=== PATIENT | female | born 1950 | race Hispanic/Latino ===

== ENCOUNTER 2018-01-17 12:58 | Observation (INO) | payer MEDICARE, OTHER ==
[~2018-01-17] VITALS: Ht 167.6 cm; Wt 81.1 kg
[~2018-01-17 12:58] MED LIST: CILO50TA PO; FERROUS PO; FOLI1TAB85 PO; FURO40TA7 PO; GABA-533 PO; GLIP10TA9 PO; INS7030 SQ; LEVO112T7 PO; METF10004 PO; PRAV20TA4 PO; TRAM50TA4 PO; VALS160T28 PO
[2018-01-17 13:53] LABS: BASOPHILS % (AUTO) 1.4 % (0.0-5.0); EOSINOPHILS % (AUTO) 2.2 % (0.0-8.0); HEMATOCRIT 24.4 % (36-48); LYMPHOCYTES % (AUTO) 10.2 % (21.0-51.0); MEAN CORPUSCULAR HEMOGLOBIN 33.3 pg (27.0-33.0); MEAN CORPUSCULAR HGB CONC 34.1 g/dL (32.0-36.0); MEAN CORPUSCULAR VOLUME 97.6 fL (79-99); MONOCYTES % (AUTO) 7.1 % (3.0-13.0); NEUTROPHILS % (AUTO) 79.1 % (40.0-77.0); PLATELET COUNT (AUTO) 379 K/uL (130-400); RED BLOOD CELL COUNT(AUTO) 2.49 MIL/uL (4.00-5.50); RED CELL DISTRIBUTION WIDTH 22.5 % (11.0-15.5); WHITE BLOOD COUNT (AUTO) 9.7 K/uL (4.8-10.8)
[2018-01-17 14:10] LABS: INR 0.92 (0.85-1.15); PROTHROMBIN TIME 9.7 SEC (9.6-11.6)
[2018-01-17 14:23] LABS: ALBUMIN 3.7 g/dL (3.5-5.0); BILIRUBIN,TOTAL 0.3 mg/dL (0.2-1.0); CREATINE KINASE MB 2.2 ng/mL (0.5-3.6); POTASSIUM 4.5 mmol/L (3.5-5.1); TOTAL PROTEIN, SERUM 7.7 g/dL (6.0-8.3)
[2018-01-17] MEDS ORDERED: SODIUM CHLORIDE 0.9% 1000ML 1,000 ML IV ONE (16:20)
[2018-01-17 17:53] LABS: APPEARANCE,URINE Clear (CLEAR); BILIRUBIN,URINE Negative (NEGATIVE); COLOR,URINE Yellow (YELLOW); GLUCOSE, URINE (UA) Negative (NEGATIVE); KETONES,URINE Negative (NEGATIVE); LEUKOCYTE ESTERASE ,URINE Trace (NEGATIVE); NITRATE,URINE Negative (NEGATIVE); OCCULT BLOOD,URINE Trace (NEGATIVE); PROTEIN,URINE Negative (NEGATIVE); UROBILINOGEN,URINE 0.2 mg/dL (0.2-1.0)
[2018-01-17 18:06] LABS: BACTERIA,URINE Few /HPF (None Seen); RBC,URINE None Seen /HPF (0-1); WBC,URINE 0-1 /HPF (0-1)
[2018-01-17] MEDS ORDERED: ACETAMINOPHEN 325 MG TAB ONE (21:23)
[2018-01-18 00:34] VITALS: BP 127/62
[2018-01-18] MEDS ORDERED: ACETAMINOPHEN-CODEINE 300/30MG TAB PO PRN ×2 (01:00)
[2018-01-18] MEDS ORDERED: ONDANSETRON HCL 4 MG/2 ML VIAL IVP PRN (02:00)
[2018-01-18] MEDS ORDERED: ACETAMINOPHEN 325 MG TAB PO PRN ×2 (02:00)
[2018-01-18] MEDS ORDERED: SODIUM CHLORIDE 0.9% 1000ML 1,000 ML IV SCH (02:00)
[2018-01-18] MEDS ORDERED: LACTULOSE 20 GM/30 ML UDCUP PO PRN (02:00)
[2018-01-18] MEDS ORDERED: DEXTROSE 50%-WATER 50 ML DISP.SYRIN IV PRN (04:00)
[2018-01-18] MEDS ORDERED: POTASSIUM CHLORIDE 20MEQ/100ML 100 ML IV PRN (04:00)
[2018-01-18] MEDS ORDERED: GLUCAGON 1MG KIT 1 MG ML IM PRN (04:00)
[2018-01-18] MEDS ORDERED: HYDRALAZINE HCL 20 MG/ML VIAL IV PRN (04:00)
[2018-01-18] MEDS ORDERED: POTASSIUM CHLORIDE 20 MEQ ERTAB PO PRN (04:00)
[2018-01-18] MEDS ORDERED: POTASSIUM CHLORIDE 10% ELIXIR 20 MEQ/15 ML UDCUP PO PRN (04:00)
[2018-01-18] MEDS ORDERED: LIDOCAINE HCL-MPF 1% 2ML VIAL IVP PRN (04:00)
[2018-01-18 04:36] LABS: HEMATOCRIT 21.4 % (36-48); MEAN CORPUSCULAR HEMOGLOBIN 34.3 pg (27.0-33.0); MEAN CORPUSCULAR HGB CONC 35.2 g/dL (32.0-36.0); MEAN CORPUSCULAR VOLUME 97.4 fL (79-99); PLATELET COUNT (AUTO) 364 K/uL (130-400); RED BLOOD CELL COUNT(AUTO) 2.19 MIL/uL (4.00-5.50); RED CELL DISTRIBUTION WIDTH 21.9 % (11.0-15.5); WHITE BLOOD COUNT (AUTO) 6.5 K/uL (4.8-10.8)
[2018-01-18 04:41] VITALS: BP 142/59
[2018-01-18 04:51] LABS: CREATININE 2.4 mg/dL (0.5-1.5); POTASSIUM 3.7 mmol/L (3.5-5.1)
[2018-01-18] MEDS: INSULIN HUMULIN R 100 UNIT/ML 3ML SQ SCH ×2 (06:04→11:57)
[2018-01-18 08:00] VITALS: BP 124/59
[2018-01-18] MEDS ORDERED: FAMOTIDINE 20MG TAB 20 MG TAB PO SCH (09:00)
[2018-01-18] MEDS ORDERED: CIPR250T6 PO (10:35)
[2018-01-18] MEDS ORDERED: FURO40TA5 PO (11:37)
[2018-01-18] MEDS ORDERED: HYDR12.530 PO (11:37)
[2018-01-18] MEDS ORDERED: FOLI1TAB15 PO (11:37)
[2018-01-18] MEDS ORDERED: VALS160T28 PO (11:37)
[2018-01-18] MEDS ORDERED: FOLI0.8T43 PO (11:37)
[2018-01-18] MEDS ORDERED: LEVO112T7 PO (11:37)
[2018-01-18] MEDS ORDERED: PRAV20TA4 PO (11:37)
[2018-01-18] MEDS ORDERED: B1/B1TAB4 PO (11:37)
[2018-01-18] MEDS ORDERED: GABA-529 PO (11:37)
[2018-01-18] MEDS ORDERED: CILO50TA PO (11:43)
[2018-01-18 12:00] VITALS: BP 141/60
[2018-01-18] MEDS ORDERED: GABAPENTIN 100 MG CAPSULE PO SCH (21:00)
[2018-01-18] MEDS ORDERED: ATORVASTATIN CALCIUM 10 MG TABLET PO SCH (21:00)
[2018-01-19] MEDS ORDERED: FOLIC ACID 1 MG TABLET PO SCH (09:00)
[2018-01-19] MEDS ORDERED: VITAMIN B COMPLEX 1 CAPSULE PO SCH (09:00)
[2018-01-19] MEDS ORDERED: HYDROCHLOROTHIAZIDE 25 MG TABLET PO SCH (09:00)
[2018-01-19] MEDS ORDERED: FUROSEMIDE 40 MG TABLET PO SCH (09:00)
[2018-01-19] MEDS ORDERED: FOLIC ACID/VITAMIN B COMP W-C 1 MG CAPSULE PO SCH (09:00)
[2018-01-19] MEDS ORDERED: LEVOTHYROXINE 112 MCG TABLET PO SCH (09:00)
[2018-01-19] MEDS ORDERED: NON-FORMULARY MEDICATION 1 EACH (Pravastatin Sodium 20 MG) PO SCH (09:00)
[2018-01-19] MEDS ORDERED: LOSARTAN 100 MG TABLET PO SCH (09:00)
== END 2018-01-18 15:15 | disposition home or self-care (01) ==
LOC: EDH 12:58 → EDHIP 14:23 → 3AH 23:05
PROVIDERS: ADMIT Family Medicine; ATTEND Family Medicine
DX: S01.01XA Laceration without foreign body of scalp, initial encounter (principal); S09.90XA Unspecified injury of head, initial encounter; I12.9 Hypertensive chronic kidney disease with stage 1 through stage 4 chronic kidney disease, or unspecified chronic kidney disease; N18.3 Chronic kidney disease, stage 3 (moderate); E11.22 Type 2 diabetes mellitus with diabetic chronic kidney disease; E11.65 Type 2 diabetes mellitus with hyperglycemia; D63.8 Anemia in other chronic diseases classified elsewhere; W19.XXXA Unspecified fall, initial encounter; Y93.89 Activity, other specified; Y92.009 Unspecified place in unspecified non-institutional (private) residence as the place of occurrence of the external cause; Y99.8 Other external cause status
CPT/HCPCS: 12002; 36415 ×2; 70450; 72125; 76770; 80048; 80053; 81001; 82270; 82550; 82553; 82948 ×2; 84484; 85025; 85027; 85610; 85730; 87046; 87177; 87205; 96372; 99285; G0378 ×25; J1815; J7030

== ENCOUNTER 2022-07-12 17:04 | Inpatient (IN) | payer OTHER ==
[~2022-07-12] VITALS: Ht 167.6 cm; Wt 89.4 kg
[~2022-07-12 17:04] MED LIST changes: +B1/B1TAB4 PO; +CIPR250T6 PO; -FERROUS PO; +FOLI0.8T43 PO; +FOLI1TAB15 PO; -FOLI1TAB85 PO; +FURO40TA5 PO; -FURO40TA7 PO; +GABA-529 PO; -GABA-533 PO; -GLIP10TA9 PO; +HYDR12.530 PO; -INS7030 SQ; -METF10004 PO; -TRAM50TA4 PO; -VALS160T28 PO; +VALS160T29 PO
[2022-07-12] MEDS ORDERED: 0.9%NACL 1000ML 1,000 ML IV ONE (17:30)
[2022-07-12 17:41] LABS: BASOPHILS % (AUTO) 0.2 % (0.0-5.0); EOSINOPHILS % (AUTO) 0.5 % (0.0-8.0); HEMATOCRIT 23.2 % (36-48); LYMPHOCYTES % (AUTO) 5.2 % (21.0-51.0); MEAN CORPUSCULAR HGB CONC 33.2 g/dL (32.0-36.0); MEAN CORPUSCULAR VOLUME 90.3 fL (79-99); MONOCYTES % (AUTO) 8.4 % (3.0-13.0); NEUTROPHILS % (AUTO) 80.3 % (40.0-77.0); PLATELET COUNT (AUTO) 210 K/uL (130-400); RED BLOOD CELL COUNT(AUTO) 2.57 MIL/uL (4.00-5.50); RED CELL DISTRIBUTION WIDTH 19.3 % (11.0-15.5); WHITE BLOOD COUNT (AUTO) 15.1 K/uL (4.8-10.8)
[2022-07-12 17:59] LABS: CARBON DIOXIDE 21 mmol/L (21-32); CHLORIDE 91 mmol/L (101-111); CREATININE 4.6 mg/dL (0.5-1.5); GLOMERULAR FILTR. RATE CALC 10 mL/min (>60); GLUCOSE,RANDOM 391 mg/dL (70-105); POTASSIUM 4.4 mmol/L (3.5-5.1); SODIUM SERUM 122 mmol/L (136-145)
[2022-07-12] MEDS ORDERED: CEFTRIAXONE 1G VIAL IVP ONE (18:00)
[2022-07-12] MEDS ORDERED: ACETAMINOPHEN 500 MG TABLET PO ONE (18:00)
[2022-07-12 18:08] LABS: ALANINE AMINOTRANSFERASE 99 U/L (12-78); ALBUMIN 2.8 g/dL (3.5-5.0); ASPARTATE AMINOTRANSFERASE 30 U/L (10-37); TOTAL PROTEIN, SERUM 6.9 g/dL (6.0-8.3)
[2022-07-12 18:09] LABS: BAND NEUTROPHILS % (MANUAL) 28 % (0-2); LYMPHOCYTES % (MANUAL) 9 % (22-44); METAMYELOCYTES % 1 % (0-0); MONOCYTES % (MANUAL) 7 % (2-9); SEGMENTED NEUTROPHILS % 55 % (40-70)
[2022-07-12 18:11] LABS: PLATELET MORPHOLOGY COMMENT ADEQUATE
[2022-07-12 18:12] LABS: UREA NITROGEN, BLOOD 92 mg/dL (7-18)
[2022-07-12 18:23] LABS: ABG BASE EXCESS -1.8 mmol/L (-2.0-3.0); ABG HCO3 23.5 mmol/L (21.0-28.0); ABG OXYGEN SATURATION 93.2 % (95.0-99.0); ABG PCO2 42 mmHg (32-45)
[2022-07-12 19:45] LABS: APPEARANCE,URINE CLEAR (CLEAR); BILIRUBIN,URINE NEGATIVE (NEGATIVE); COLOR,URINE YELLOW (YELLOW); GLUCOSE, URINE (UA) NEGATIVE (NEGATIVE); KETONES,URINE NEGATIVE (NEGATIVE); LEUKOCYTE ESTERASE ,URINE NEGATIVE (NEGATIVE); NITRATE,URINE NEGATIVE (NEGATIVE); OCCULT BLOOD,URINE NEGATIVE (NEGATIVE); PH,URINE 5.5 (5.0-8.0); PROTEIN,URINE 30 mg/dL (NEGATIVE); UROBILINOGEN,URINE 0.2 mg/dL (0.2-1.0)
[2022-07-12 20:14] LABS: BACTERIA,URINE Rare /HPF (None Seen); RBC,URINE None Seen /HPF (0-1); SQUAMOUS EPITHELIAL CELL,UR None Seen /HPF (0-2); WBC,URINE 0-1 /HPF (0-1)
[2022-07-12] MEDS ORDERED: 0.9% NACL 500ML IV.SOLN 500 ML IV ONE (20:30)
[2022-07-12] MEDS ORDERED: ZOSYN 3.375GM +NS 50ML IV ONE (22:30)
[2022-07-12] MEDS ORDERED: 0.9% NACL 250ML IV SCH (23:00)
[2022-07-12] MEDS ORDERED: VANCOMYCIN PROTOCOL PER PHARMACY IV SCH (23:00)
[2022-07-12] MEDS ORDERED: HYDRALAZINE 20MG/ML VIAL IV PRN (23:00)
[2022-07-12] MEDS ORDERED: CLONIDINE HCL 0.1 MG TABLET PO PRN (23:00)
[2022-07-12] MEDS ORDERED: ONDANSETRON 4MG INJ IVP PRN (23:00)
[2022-07-12] MEDS ORDERED: TEMAZEPAM 15 MG CAPSULE PO PRN (23:00)
[2022-07-12] MEDS ORDERED: LABETALOL 20MG SYG IV PRN (23:00)
[2022-07-12] MEDS: ZOSYN 3.375GM +NS 50ML IV SCH (23:00)
[2022-07-12] MEDS ORDERED: ALBUTEROL INHALER 90MCG/INH IH PRN (23:00)
[2022-07-12] MEDS ORDERED: LACTULOSE 20 GM/30 ML UDCUP PO PRN (23:00)
[2022-07-12] MEDS: 0.9%NACL 1000ML 1,000 ML IV SCH (23:21)
[2022-07-12] MEDS ORDERED: VANCOMYCIN KIT 1 GM/250 ML IV.KIT IV SCH (23:30)
[2022-07-13] VITALS (8 sets, daily range): BP systolic 108–149; BP diastolic 58–81
[2022-07-13] MEDS ORDERED: ERGOCALCIFEROL (VITAMIN D2) 50,000 UNIT CAPSULE PO ONE
[2022-07-13] MEDS ORDERED: CEFTRIAXONE 1G VIAL IVP SCH
[2022-07-13] MEDS ORDERED: DEXAMETHASONE SOD PHOSPHATE 4 MG/ML 1ML VIAL IVP SCH
[2022-07-13] MEDS: DOXYCYCLINE 100MG+NS 250ML IV SCH ×3 (01:35→23:54)
[2022-07-13] MEDS ORDERED: FURO40TA5 PO (02:51)
[2022-07-13] MEDS ORDERED: TRAZ-185 PO (02:51)
[2022-07-13] MEDS ORDERED: METO25TA6 PO (02:51)
[2022-07-13] MEDS ORDERED: RUXO10TA PO (02:51)
[2022-07-13] MEDS ORDERED: TRAM50TA4 PO (02:51)
[2022-07-13] MEDS ORDERED: HUM100IN SQ (02:52)
[2022-07-13 04:42] LABS: ALBUMIN 2.3 g/dL (3.5-5.0); CREATININE 4.2 mg/dL (0.5-1.5); MAGNESIUM 1.9 mg/dL (1.80-2.40); PHOSPHORUS 4.7 mg/dL (2.5-4.9); POTASSIUM 4.3 mmol/L (3.5-5.1); TOTAL PROTEIN, SERUM 5.9 g/dL (6.0-8.3)
[2022-07-13] MEDS: CEFTRIAXONE 1G VIAL IVP SCH ×2 (06:06→18:27)
[2022-07-13] MEDS: INSULIN HUMULIN R 100 UNIT/ML 3ML SQ SCH ×4 (06:35→21:35)
[2022-07-13 06:46] LABS: BASOPHILS % (AUTO) 0.2 % (0.0-5.0); EOSINOPHILS % (AUTO) 0.6 % (0.0-8.0); HEMATOCRIT 21.5 % (36-48); LYMPHOCYTES % (AUTO) 4.3 % (21.0-51.0); MEAN CORPUSCULAR HEMOGLOBIN 30.5 pg (27.0-33.0); MEAN CORPUSCULAR VOLUME 92.3 fL (79-99); MONOCYTES % (AUTO) 8.1 % (3.0-13.0); NEUTROPHILS % (AUTO) 83.2 % (40.0-77.0); PLATELET COUNT (AUTO) 164 K/uL (130-400); RED BLOOD CELL COUNT(AUTO) 2.33 MIL/uL (4.00-5.50); RED CELL DISTRIBUTION WIDTH 19.5 % (11.0-15.5)
[2022-07-13 07:13] LABS: B-TYPE NATRIURETIC PEPTIDE 112 pg/mL (0-100)
[2022-07-13] MEDS: ENOXAPARIN SODIUM 30 MG/0.3 ML SQ SCH (09:00)
[2022-07-13] MEDS ORDERED: ASPIRIN 81MG CHEW TAB PO SCH (09:00)
[2022-07-13] MEDS: ZINC SULFATE 220 CAPSULE PO SCH (09:47)
[2022-07-13] MEDS: ASCORBIC ACID 500 MG TAB PO SCH (09:47)
[2022-07-13] MEDS: ZOSYN 3.375GM +NS 50ML IV SCH ×2 (11:20→21:35)
[2022-07-13] MEDS ORDERED: TRAMADOL HCL 50 MG TABLET PO PRN (18:00)
[2022-07-13] MEDS: 0.9%NACL 1000ML 1,000 ML IV SCH ×2 (18:27→18:48)
[2022-07-13] MEDS ORDERED: RENAL DOSE IV PRN (19:00)
[2022-07-13 23:57] LABS: BASOPHILS % (AUTO) 0.4 % (0.0-5.0); EOSINOPHILS % (AUTO) 1.1 % (0.0-8.0); HEMATOCRIT 25.7 % (36-48); LYMPHOCYTES % (AUTO) 5.2 % (21.0-51.0); MEAN CORPUSCULAR HEMOGLOBIN 30.7 pg (27.0-33.0); MEAN CORPUSCULAR HGB CONC 33.1 g/dL (32.0-36.0); MEAN CORPUSCULAR VOLUME 92.8 fL (79-99); MONOCYTES % (AUTO) 7.2 % (3.0-13.0); NEUTROPHILS % (AUTO) 80.3 % (40.0-77.0); PLATELET COUNT (AUTO) 201 K/uL (130-400); RED BLOOD CELL COUNT(AUTO) 2.77 MIL/uL (4.00-5.50); WHITE BLOOD COUNT (AUTO) 17.3 K/uL (4.8-10.8)
[2022-07-14 03:40] VITALS: BP 144/79
[2022-07-14 04:09] LABS: BASOPHILS % (AUTO) 0.3 % (0.0-5.0); EOSINOPHILS % (AUTO) 1.7 % (0.0-8.0); HEMATOCRIT 22.1 % (36-48); LYMPHOCYTES % (AUTO) 5.5 % (21.0-51.0); MEAN CORPUSCULAR HEMOGLOBIN 30.3 pg (27.0-33.0); MEAN CORPUSCULAR HGB CONC 32.6 g/dL (32.0-36.0); MEAN CORPUSCULAR VOLUME 92.9 fL (79-99); MONOCYTES % (AUTO) 8.3 % (3.0-13.0); NEUTROPHILS % (AUTO) 77.9 % (40.0-77.0); PLATELET COUNT (AUTO) 169 K/uL (130-400); RED BLOOD CELL COUNT(AUTO) 2.38 MIL/uL (4.00-5.50); RED CELL DISTRIBUTION WIDTH 19.9 % (11.0-15.5); WHITE BLOOD COUNT (AUTO) 15.1 K/uL (4.8-10.8)
[2022-07-14 04:35] LABS: ALBUMIN 2.3 g/dL (3.5-5.0); CREATININE 4.1 mg/dL (0.5-1.5); MAGNESIUM 1.8 mg/dL (1.80-2.40); POTASSIUM 4.5 mmol/L (3.5-5.1); TOTAL PROTEIN, SERUM 5.9 g/dL (6.0-8.3)
[2022-07-14 04:37] LABS: % IRON SATURATION 107.8 % (22-44)
[2022-07-14] MEDS: 0.9%NACL 1000ML 1,000 ML IV SCH ×3 (05:00→23:57)
[2022-07-14] MEDS: CEFTRIAXONE 1G VIAL IVP SCH (05:10)
[2022-07-14] MEDS: INSULIN HUMULIN R 100 UNIT/ML 3ML SQ SCH ×4 (06:12→21:15)
[2022-07-14 07:00] VITALS: BP 140/73
[2022-07-14] MEDS ORDERED: VANCOMYCIN 1.25 GM/250 ML BAG 250 ML IV SCH (09:00)
[2022-07-14] MEDS: ASCORBIC ACID 500 MG TAB PO SCH (09:10)
[2022-07-14] MEDS: Vitamin B Complex/Vit C/Folic Acid PO SCH (09:10)
[2022-07-14] MEDS: ENOXAPARIN SODIUM 30 MG/0.3 ML SQ SCH (09:10)
[2022-07-14] MEDS: ZINC SULFATE 220 CAPSULE PO SCH (09:10)
[2022-07-14 11:00] VITALS: BP 141/78
[2022-07-14] MEDS: EPOETIN ALFA-EPBX (NON-ESRD) 10,000 UNIT/ML VIAL SQ SCH (11:34)
[2022-07-14] MEDS: ZOSYN 3.375GM +NS 50ML IV SCH ×2 (11:34→23:30)
[2022-07-14] MEDS: DOXYCYCLINE 100MG+NS 250ML IV SCH ×2 (11:34→23:30)
[2022-07-14 16:00] VITALS: BP 152/80
[2022-07-14 19:00] VITALS: BP 135/61
[2022-07-14 20:00] VITALS: BP 135/61
[2022-07-14] MEDS: ACETAMINOPHEN 325 MG TAB PO PRN (21:14)
[2022-07-15] VITALS: BP 129/56
[2022-07-15 03:00] VITALS: BP 114/63
[2022-07-15 05:09] LABS: BASOPHILS % (AUTO) 0.5 % (0.0-5.0); EOSINOPHILS % (AUTO) 1.7 % (0.0-8.0); HEMATOCRIT 22.6 % (36-48); LYMPHOCYTES % (AUTO) 6.2 % (21.0-51.0); MEAN CORPUSCULAR HEMOGLOBIN 29.9 pg (27.0-33.0); MEAN CORPUSCULAR HGB CONC 31.9 g/dL (32.0-36.0); MEAN CORPUSCULAR VOLUME 93.8 fL (79-99); NEUTROPHILS % (AUTO) 73.4 % (40.0-77.0); PLATELET COUNT (AUTO) 203 K/uL (130-400); RED BLOOD CELL COUNT(AUTO) 2.41 MIL/uL (4.00-5.50); RED CELL DISTRIBUTION WIDTH 20.3 % (11.0-15.5); WHITE BLOOD COUNT (AUTO) 16.3 K/uL (4.8-10.8)
[2022-07-15 05:52] LABS: ALBUMIN 2.3 g/dL (3.5-5.0); CREATININE 4.2 mg/dL (0.5-1.5); POTASSIUM 4.2 mmol/L (3.5-5.1); TOTAL PROTEIN, SERUM 5.8 g/dL (6.0-8.3)
[2022-07-15] MEDS: INSULIN HUMULIN R 100 UNIT/ML 3ML SQ SCH ×4 (06:23→22:38)
[2022-07-15] MEDS: ACETAMINOPHEN 325 MG TAB PO PRN ×2 (06:36→13:39)
[2022-07-15 08:00] VITALS: BP 144/82
[2022-07-15] MEDS: Vitamin B Complex/Vit C/Folic Acid PO SCH (08:51)
[2022-07-15] MEDS: ASCORBIC ACID 500 MG TAB PO SCH (08:51)
[2022-07-15] MEDS: ZINC SULFATE 220 CAPSULE PO SCH (08:51)
[2022-07-15] MEDS: ENOXAPARIN SODIUM 30 MG/0.3 ML SQ SCH (08:52)
[2022-07-15] MEDS: 0.9%NACL 1000ML 1,000 ML IV SCH ×2 (11:37→20:19)
[2022-07-15] MEDS: ZOSYN 3.375GM +NS 50ML IV SCH (11:38)
[2022-07-15] MEDS: DOXYCYCLINE 100MG+NS 250ML IV SCH (11:49)
[2022-07-15 11:54] VITALS: BP 155/73
[2022-07-15 16:00] VITALS: BP 144/75
[2022-07-15] MEDS ORDERED: LOPE2 PO (18:35)
[2022-07-15] MEDS ORDERED: DOXY100C5 PO (18:35)
[2022-07-15 19:00] VITALS: BP 147/72
[2022-07-15] MEDS: METOPROLOL TARTRATE 25 MG TAB PO SCH (20:17)
[2022-07-15] MEDS: FUROSEMIDE 20MG VIAL IV SCH (20:17)
[2022-07-15] MEDS: CILOSTAZOL 100 MG TAB PO SCH (20:18)
[2022-07-16] VITALS: BP 156/71
[2022-07-16] MEDS: DOXYCYCLINE 100MG+NS 250ML IV SCH (00:37)
[2022-07-16] MEDS: ACETAMINOPHEN 325 MG TAB PO PRN (00:54)
[2022-07-16 04:00] VITALS: BP 141/71
[2022-07-16] MEDS: FUROSEMIDE 20MG VIAL IV SCH (05:31)
[2022-07-16] MEDS: INSULIN HUMULIN R 100 UNIT/ML 3ML SQ SCH ×2 (06:59→12:42)
[2022-07-16] MEDS: 0.9%NACL 1000ML 1,000 ML IV SCH (07:00)
[2022-07-16 08:00] VITALS: BP 163/80
[2022-07-16] MEDS ORDERED: VITAMIN B COMPLEX 1 CAPSULE PO SCH (09:00)
[2022-07-16] MEDS ORDERED: FOLIC ACID 1 MG TABLET PO SCH (09:00)
[2022-07-16] MEDS ORDERED: Vitamin B Complex/Vit C/Folic Acid PO SCH (09:00)
[2022-07-16] MEDS: ZINC SULFATE 220 CAPSULE PO SCH (10:07)
[2022-07-16] MEDS: ASCORBIC ACID 500 MG TAB PO SCH (10:07)
[2022-07-16] MEDS: ENOXAPARIN SODIUM 30 MG/0.3 ML SQ SCH (10:07)
[2022-07-16] MEDS: Vitamin B Complex/Vit C/Folic Acid PO SCH (10:08)
[2022-07-16] MEDS: EPOETIN ALFA-EPBX (NON-ESRD) 10,000 UNIT/ML VIAL SQ SCH (10:09)
[2022-07-16] MEDS: CILOSTAZOL 100 MG TAB PO SCH (10:09)
[2022-07-16] MEDS: METOPROLOL TARTRATE 25 MG TAB PO SCH (10:09)
[2022-07-16 12:00] VITALS: BP 145/64
== END 2022-07-16 13:30 | disposition home or self-care (01) | DRG 871 ==
LOC: EDH 17:04 → EDHIP 22:34 → OBSVTOIN 22:34 → 2AH 07-13 02:27
PROVIDERS: ADMIT Internal Medicine; ATTEND Internal Medicine
DX: A41.9 Sepsis, unspecified organism (principal); J12.82 Pneumonia due to coronavirus disease 2019; U07.1 COVID-19; J96.91 Respiratory failure, unspecified with hypoxia; L03.311 Cellulitis of abdominal wall; D84.9 Immunodeficiency, unspecified; D75.81 Myelofibrosis; N17.9 Acute kidney failure, unspecified; N18.4 Chronic kidney disease, stage 4 (severe); E87.1 Hypo-osmolality and hyponatremia; E86.1 Hypovolemia; D64.9 Anemia, unspecified; E11.65 Type 2 diabetes mellitus with hyperglycemia; I12.9 Hypertensive chronic kidney disease with stage 1 through stage 4 chronic kidney disease, or unspecified chronic kidney disease; E11.22 Type 2 diabetes mellitus with diabetic chronic kidney disease; E89.0 Postprocedural hypothyroidism; Z96.641 Presence of right artificial hip joint; K52.9 Noninfective gastroenteritis and colitis, unspecified; E66.01 Morbid (severe) obesity due to excess calories; R32 Unspecified urinary incontinence; Z83.3 Family history of diabetes mellitus; Z87.440 Personal history of urinary (tract) infections; Z90.710 Acquired absence of both cervix and uterus; Z68.31 Body mass index [BMI] 31.0-31.9, adult
CPT/HCPCS: 36415; 71045; 74176; 80053; 81001; 82010; 82270; 82728; 82803; 82948; 83540; 83550; 83605; 83615; 83630; 83735; 83880; 84100; 84145; 84484; 85025; 85378; 86850; 86900; 86901; 87040; 87426; 87804; 93005; G0378; J0696; J1100; J1650; J1815; J1940; J2543; J3370; J3490; J7030; J7040; J7050

== ENCOUNTER 2022-11-10 10:53 | Observation (INO) | payer OTHER ==
[~2022-11-10] VITALS: Ht 167.6 cm; Wt 75.7 kg
[~2022-11-10 10:53] MED LIST changes: -CILO50TA PO; +CILO50TA2 PO; -CIPR250T6 PO; +DOXY100C5 PO; -GABA-529 PO; +HUM100IN SQ; -HYDR12.530 PO; -LEVO112T7 PO; +LOPE2 PO; +METO25TA6 PO; -PRAV20TA4 PO; +RUXO10TA PO; +TRAM50TA4 PO; +TRAZ-185 PO; -VALS160T29 PO
[2022-11-10 12:04] LABS: BASOPHILS % (AUTO) 0.3 % (0.0-5.0); EOSINOPHILS % (AUTO) 0.6 % (0.0-8.0); LYMPHOCYTES % (AUTO) 7.5 % (21.0-51.0); MEAN CORPUSCULAR HEMOGLOBIN 29.6 pg (27.0-33.0); MEAN CORPUSCULAR HGB CONC 33.7 g/dL (32.0-36.0); MEAN CORPUSCULAR VOLUME 87.8 fL (79-99); MONOCYTES % (AUTO) 8.8 % (3.0-13.0); NEUTROPHILS % (AUTO) 78.4 % (40.0-77.0); PLATELET COUNT (AUTO) 207 K/uL (130-400); RED CELL DISTRIBUTION WIDTH 16.6 % (11.0-15.5); WHITE BLOOD COUNT (AUTO) 14.6 K/uL (4.8-10.8)
[2022-11-10 12:09] LABS: HEMATOCRIT 20.2 % (36-48)
[2022-11-10 12:30] LABS: ALBUMIN 3.8 g/dL (3.5-5.0); CREATININE 4.9 mg/dL (0.5-1.5); POTASSIUM 3.4 mmol/L (3.5-5.1); TOTAL PROTEIN, SERUM 8.2 g/dL (6.0-8.3)
[2022-11-10] MEDS ORDERED: ACETAMINOPHEN 650 MG SUPPOSITORY RC PRN (13:30)
[2022-11-10] MEDS ORDERED: TRAMADOL HCL 50 MG TABLET PO PRN (13:30)
[2022-11-10] MEDS ORDERED: ACETAMINOPHEN 325 MG TAB PO PRN (13:30)
[2022-11-10 15:10] LABS: APPEARANCE,URINE CLEAR (CLEAR); BILIRUBIN,URINE NEGATIVE (NEGATIVE); COLOR,URINE LIGHT-YELLOW (YELLOW); GLUCOSE, URINE (UA) NEGATIVE (NEGATIVE); KETONES,URINE NEGATIVE (NEGATIVE); LEUKOCYTE ESTERASE ,URINE NEGATIVE Leu/uL (NEGATIVE); NITRATE,URINE NEGATIVE (NEGATIVE); OCCULT BLOOD,URINE NEGATIVE (NEGATIVE); PROTEIN,URINE NEGATIVE (NEGATIVE); UROBILINOGEN,URINE 0.2 mg/dL (0.2-1.0)
[2022-11-10] MEDS ORDERED: TRAM50TA4 PO (15:34)
[2022-11-10] MEDS ORDERED: LEVO112C4 PO (15:34)
[2022-11-10] MEDS ORDERED: RUXO10TA PO (15:34)
[2022-11-10] MEDS ORDERED: METO2.5T2 PO (15:34)
[2022-11-10 20:00] VITALS: BP 126/67
[2022-11-11 00:04] VITALS: BP 142/77
[2022-11-11] MEDS: HYDROCODONE/ACETAMINOPHEN 5/325 MG TAB PO PRN ×2 (02:52→08:48)
[2022-11-11 04:22] LABS: BASOPHILS % (AUTO) 0.5 % (0.0-5.0); EOSINOPHILS % (AUTO) 0.4 % (0.0-8.0); HEMATOCRIT 23.7 % (36-48); LYMPHOCYTES % (AUTO) 9.4 % (21.0-51.0); MEAN CORPUSCULAR HGB CONC 34.2 g/dL (32.0-36.0); MEAN CORPUSCULAR VOLUME 84.9 fL (79-99); MONOCYTES % (AUTO) 8.8 % (3.0-13.0); PLATELET COUNT (AUTO) 182 K/uL (130-400); RED BLOOD CELL COUNT(AUTO) 2.79 MIL/uL (4.00-5.50); RED CELL DISTRIBUTION WIDTH 16.1 % (11.0-15.5); WHITE BLOOD COUNT (AUTO) 10.6 K/uL (4.8-10.8)
[2022-11-11 04:37] LABS: CREATININE 4.7 mg/dL (0.5-1.5)
[2022-11-11 04:45] VITALS: BP 145/68
[2022-11-11 04:46] VITALS: BP_SYST 102; BP_SYST 143; BP_DIAS 47; BP_DIAS 63
[2022-11-11 04:48] VITALS: BP 141/65
[2022-11-11] MEDS ORDERED: POTASSIUM CHLORIDE 10MEQ/100ML 10 MEQ/100 ML ML IV SCH (05:00)
[2022-11-11] MEDS ORDERED: LIDOCAINE HCL-MPF 1% 2ML VIAL IV SCH (05:00)
[2022-11-11 07:30] VITALS: BP 107/60
[2022-11-11] MEDS ORDERED: FUROSEMIDE 40 MG TABLET PO SCH (09:00)
[2022-11-11] MEDS ORDERED: METOPROLOL TARTRATE 25 MG TAB PO SCH (09:00)
[2022-11-11] MEDS ORDERED: TRAZODONE HCL 50 MG TAB PO PRN (09:00)
[2022-11-11] MEDS ORDERED: JAKAFI 10 MG PO SCH (09:00)
[2022-11-11] MEDS ORDERED: PANTOPRAZOLE 40 MG TAB DR PO SCH (09:00)
[2022-11-11] MEDS ORDERED: Vitamin B Complex/Vit C/Folic Acid PO SCH (09:00)
[2022-11-11] MEDS ORDERED: TRAMADOL HCL 50 MG TABLET PO SCH (09:00)
[2022-11-11] MEDS ORDERED: METOLAZONE 2.5 MG TABLET PO SCH (09:00)
[2022-11-11 11:30] VITALS: BP 140/70
[2022-11-12] MEDS ORDERED: LEVOTHYROXINE 112 MCG TABLET PO SCH (07:30)
== END 2022-11-11 13:45 | disposition home or self-care (01) ==
LOC: EDH 11:03 → EDHIP 13:23 → 3BH 18:45 → 3AH 18:45
PROVIDERS: ADMIT Internal Medicine; ATTEND Internal Medicine
DX: D64.9 Anemia, unspecified (principal); S51.811A Laceration without foreign body of right forearm, initial encounter; S51.812A Laceration without foreign body of left forearm, initial encounter; D75.81 Myelofibrosis; I12.9 Hypertensive chronic kidney disease with stage 1 through stage 4 chronic kidney disease, or unspecified chronic kidney disease; E11.22 Type 2 diabetes mellitus with diabetic chronic kidney disease; N18.4 Chronic kidney disease, stage 4 (severe); D63.1 Anemia in chronic kidney disease; E03.9 Hypothyroidism, unspecified; R29.6 Repeated falls; W18.30XA Fall on same level, unspecified, initial encounter; Y93.89 Activity, other specified; Y92.89 Other specified places as the place of occurrence of the external cause
CPT/HCPCS: 96360; 96361; 36430; 99285; 80053; 85025 ×2; 86850; 86900; 86901; 86923; 81003; 36415 ×2; 71045; 73562; 74176; 93005; 80048; G0378 ×22; P9016; J3490

== ENCOUNTER 2023-02-28 07:57 | Inpatient (IN) | payer OTHER ==
[2023-02-28] VITALS (17 sets, daily range): BP systolic 97–152; BP diastolic 49–81
[~2023-02-28] VITALS: Ht 157.5 cm; Wt 70.7 kg
[~2023-02-28 07:57] MED LIST changes: -B1/B1TAB4 PO; -CILO50TA2 PO; -DOXY100C5 PO; -FOLI0.8T43 PO; -FOLI1TAB15 PO; -FURO40TA5 PO; -LOPE2 PO; -METO25TA6 PO; -RUXO10TA PO; +TEMA15CA5 PO; -TRAM50TA4 PO; -TRAZ-185 PO
[2023-02-28 08:23] LABS: BASOPHILS % (AUTO) 0.9 % (0.0-5.0); HEMATOCRIT 27.3 % (36-48); MEAN CORPUSCULAR HEMOGLOBIN 31.3 pg (27.0-33.0); MEAN CORPUSCULAR HGB CONC 31.5 g/dL (32.0-36.0); MEAN CORPUSCULAR VOLUME 99.3 fL (79-99); MONOCYTES % (AUTO) 8.5 % (3.0-13.0); NEUTROPHILS % (AUTO) 70.9 % (40.0-77.0); PLATELET COUNT (AUTO) 211 K/uL (130-400); RED BLOOD CELL COUNT(AUTO) 2.75 MIL/uL (4.00-5.50); RED CELL DISTRIBUTION WIDTH 17.5 % (11.0-15.5); WHITE BLOOD COUNT (AUTO) 6.7 K/uL (4.8-10.8)
[2023-02-28 08:29] LABS: CREATININE 6.7 mg/dL (0.5-1.5); POTASSIUM 5.6 mmol/L (3.5-5.1)
[2023-02-28 08:30] LABS: INR 0.95 (0.85-1.15); PROTHROMBIN TIME 10.4 SEC (9.6-11.6)
[2023-02-28 08:32] LABS: PARTIAL THROMBOPLASTIN TIME 28.2 SEC (26.3-35.5)
[2023-02-28 08:33] LABS: ALBUMIN 2.3 g/dL (3.5-5.0); TOTAL PROTEIN, SERUM 7.7 g/dL (6.0-8.3)
[2023-02-28] MEDS ORDERED: NA ZIRCON CYCLOSIL(LOKELMA 10GM) PO ONE (09:00)
[2023-02-28] MEDS ORDERED: ALPRAZOLAM 0.5 MG TABLET PO PRN (09:00)
[2023-02-28] MEDS ORDERED: HYDROMORPHONE 1 MG INJ IVP PRN ×2 (09:00)
[2023-02-28] MEDS ORDERED: ACETAMINOPHEN 325 MG TAB PO PRN ×2 (09:00)
[2023-02-28] MEDS ORDERED: LACTULOSE 20 GM/30 ML UDCUP PO PRN (09:00)
[2023-02-28] MEDS ORDERED: HYDROCODONE/ACETAMINOPHEN 5/325 MG TAB PO PRN (09:00)
[2023-02-28] MEDS ORDERED: KAYEXALATE 15GM/60ML PO PRN (09:00)
[2023-02-28] MEDS ORDERED: ALBUTEROL 0.083% 2.5 MG/3 ML INH IH PRN (09:00)
[2023-02-28] MEDS ORDERED: DIPHENHYDRAMINE HCL 25 MG CAPSULE PO PRN (09:00)
[2023-02-28] MEDS ORDERED: LOPERAMIDE HCL 2 MG CAP PO PRN (09:00)
[2023-02-28] MEDS ORDERED: ZOLPIDEM TARTRATE 5 MG TAB PO PRN (09:00)
[2023-02-28] MEDS ORDERED: DOCUSATE SODIUM 100 MG CAP PO PRN (09:00)
[2023-02-28] MEDS ORDERED: NITROGLYCERIN 0.4 MG SL TAB SL PRN (09:00)
[2023-02-28] MEDS ORDERED: GUAIFENESIN SUGAR-FREE 100 MG/5 ML UDCUP PO PRN (09:00)
[2023-02-28] MEDS ORDERED: POLYETHYLENE GLYCOL 3350 17 GM POWD.PACK PO PRN (09:00)
[2023-02-28] MEDS ORDERED: GUAIFENESIN-DM 200/20 MG 10 ML PO PRN (09:00)
[2023-02-28] MEDS ORDERED: ONDANSETRON 4MG INJ IV PRN (09:00)
[2023-02-28] MEDS: MIDODRINE HCL 5 MG TABLET PO SCH ×2 (10:18→20:08)
[2023-02-28] MEDS: FAMOTIDINE 20MG TAB PO SCH ×2 (10:18→20:07)
[2023-02-28] MEDS: INSULIN HUMULIN R 100 UNIT/ML 3ML SQ SCH ×2 (11:30→20:12)
[2023-02-28] MEDS ORDERED: LIDOCAINE HCL 1% MDV 50ML VIAL ONE (14:06)
[2023-02-28] MEDS ORDERED: HEPARIN 1,000 UNIT VIAL ONE (14:07)
[2023-02-28] MEDS ORDERED: HONEY 1 APPL/ML TUBE TP SCH (17:30)
[2023-02-28] MEDS ORDERED: HEPARIN 5,000 UNIT VIAL IV SCH (17:30)
[2023-02-28] MEDS ORDERED: HEPARIN 5,000 UNIT VIAL ONE (17:40)
[2023-02-28] MEDS ORDERED: HYDR-4153 PO (18:50)
[2023-02-28] MEDS ORDERED: SODI650T PO (18:50)
[2023-02-28] MEDS ORDERED: HYDR-3421 PO (18:50)
[2023-02-28] MEDS ORDERED: TEMA15CA PO (18:50)
[2023-02-28] MEDS ORDERED: ACET-2247 PO (18:50)
[2023-02-28] MEDS ORDERED: FOLI0.8T2 PO (18:50)
[2023-02-28] MEDS ORDERED: EPOE20002 IJ (18:50)
[2023-02-28] MEDS ORDERED: PANT40TA54 PO (18:50)
[2023-02-28] MEDS ORDERED: IPRA3AMP24 IH (18:50)
[2023-02-28] MEDS ORDERED: LEVO112T7 PO (18:50)
[2023-02-28] MEDS ORDERED: BUME1TAB7 PO (18:50)
[2023-02-28] MEDS ORDERED: CLON0.1T PO (18:50)
[2023-02-28] MEDS ORDERED: ACET-2893 PO (18:50)
[2023-02-28] MEDS ORDERED: CLOT15CR5 TP (18:50)
[2023-02-28] MEDS ORDERED: TRAM50TA4 PO (18:50)
[2023-02-28] MEDS ORDERED: METO25TA6 PO (18:50)
[2023-02-28] MEDS ORDERED: SANTO TP (18:50)
[2023-02-28] MEDS ORDERED: LIDO1ADH82 TP (18:50)
[2023-02-28] MEDS ORDERED: CITA-106 PO (18:50)
[2023-02-28] MEDS ORDERED: SENN8.6T32 PO (18:50)
[2023-02-28] MEDS ORDERED: GENT30OI2 TP (18:50)
[2023-02-28] MEDS ORDERED: METO2.5T2 PO (18:50)
[2023-02-28] MEDS ORDERED: BALS60OI TP (18:50)
[2023-02-28] MEDS ORDERED: DOCU-116 PO (18:50)
[2023-02-28] MEDS ORDERED: NYST100P2 MC (18:50)
[2023-02-28] MEDS: ACETAMINOPHEN 325 MG TAB PO PRN (20:20)
[2023-02-28 20:49] LABS: HEPATITIS B SURFACE ANTIGEN Non-Reactive (Nonreactive)
[2023-03-01] VITALS (19 sets, daily range): BP systolic 105–138; BP diastolic 47–63
[2023-03-01 06:02] LABS: BASOPHILS % (AUTO) 1.1 % (0.0-5.0); HEMATOCRIT 23.1 % (36-48); LYMPHOCYTES % (AUTO) 15.2 % (21.0-51.0); MEAN CORPUSCULAR HEMOGLOBIN 31.1 pg (27.0-33.0); MEAN CORPUSCULAR HGB CONC 31.6 g/dL (32.0-36.0); MEAN CORPUSCULAR VOLUME 98.3 fL (79-99); MONOCYTES % (AUTO) 12.6 % (3.0-13.0); NEUTROPHILS % (AUTO) 66.4 % (40.0-77.0); PLATELET COUNT (AUTO) 181 K/uL (130-400); RED BLOOD CELL COUNT(AUTO) 2.35 MIL/uL (4.00-5.50); RED CELL DISTRIBUTION WIDTH 17.2 % (11.0-15.5); WHITE BLOOD COUNT (AUTO) 5.4 K/uL (4.8-10.8)
[2023-03-01] MEDS: INSULIN HUMULIN R 100 UNIT/ML 3ML SQ SCH ×4 (06:08→20:28)
[2023-03-01 06:18] LABS: PHOSPHORUS 5.5 mg/dL (2.5-4.9); POTASSIUM 4.1 mmol/L (3.5-5.1); TOTAL PROTEIN, SERUM 6.5 g/dL (6.0-8.3)
[2023-03-01] MEDS: FAMOTIDINE 20MG TAB PO SCH ×2 (09:26→20:24)
[2023-03-01] MEDS: MIDODRINE HCL 5 MG TABLET PO SCH ×4 (09:30→20:25)
[2023-03-01] MEDS ORDERED: HEPARIN 5,000 UNIT VIAL IV SCH (13:00)
[2023-03-01] MEDS ORDERED: IRON SUCROSE COMPLEX 300 MG in 0.9% NACL 250ML 250 ML IV SCH (21:00)
[2023-03-02] VITALS (23 sets, daily range): BP systolic 97–151; BP diastolic 41–80
[2023-03-02] MEDS: INSULIN HUMULIN R 100 UNIT/ML 3ML SQ SCH ×4 (06:41→20:34)
[2023-03-02] MEDS: MIDODRINE HCL 5 MG TABLET PO SCH ×4 (09:15→20:32)
[2023-03-02] MEDS: FAMOTIDINE 20MG TAB PO SCH ×2 (09:15→20:32)
[2023-03-02] MEDS ORDERED: BALSAM PERU/CASTOR OIL 60 GM TUBE TP SCH (11:30)
[2023-03-02] MEDS ORDERED: TEMAZEPAM 15 MG CAPSULE PO PRN (11:30)
[2023-03-02] MEDS ORDERED: HONEY 1 APPL/ML TUBE TP SCH (11:30)
[2023-03-02] MEDS: HEPARIN 5,000 UNIT VIAL IV SCH (13:20)
[2023-03-02] MEDS: EPOETIN ALFA-EPBX (NON-ESRD) 10,000 UNIT/ML VIAL SQ SCH (14:23)
[2023-03-02] MEDS: HYDROCODONE/ACETAMINOPHEN 5/325 MG TAB PO PRN (18:25)
[2023-03-02] MEDS: DOCUSATE SODIUM 100 MG CAP PO SCH (20:32)
[2023-03-02] MEDS: CLOTRIMAZOLE/BETAMETHASONE DIP 45 GM CREAM.GM. TP SCH (20:32)
[2023-03-02] MEDS: METOPROLOL TARTRATE 25 MG TAB PO SCH (20:32)
[2023-03-02] MEDS ORDERED: METOLAZONE 2.5 MG TABLET PO SCH (21:00)
[2023-03-03 03:14] VITALS: BP 144/67
[2023-03-03 05:22] LABS: EOSINOPHILS % (AUTO) 2.9 % (0.0-8.0); HEMATOCRIT 23.5 % (36-48); LYMPHOCYTES % (AUTO) 15.4 % (21.0-51.0); MEAN CORPUSCULAR HEMOGLOBIN 31.2 pg (27.0-33.0); MEAN CORPUSCULAR HGB CONC 32.8 g/dL (32.0-36.0); MEAN CORPUSCULAR VOLUME 95.1 fL (79-99); NEUTROPHILS % (AUTO) 67.8 % (40.0-77.0); PLATELET COUNT (AUTO) 171 K/uL (130-400); RED BLOOD CELL COUNT(AUTO) 2.47 MIL/uL (4.00-5.50); RED CELL DISTRIBUTION WIDTH 16.6 % (11.0-15.5); WHITE BLOOD COUNT (AUTO) 6.2 K/uL (4.8-10.8)
[2023-03-03] MEDS: INSULIN HUMULIN R 100 UNIT/ML 3ML SQ SCH ×4 (05:59→20:32)
[2023-03-03] MEDS: LEVOTHYROXINE 112 MCG TABLET PO SCH (05:59)
[2023-03-03 06:14] LABS: CREATININE 2.7 mg/dL (0.5-1.5); PHOSPHORUS 3.9 mg/dL (2.5-4.9)
[2023-03-03 06:41] LABS: POTASSIUM 2.8 mmol/L (3.5-5.1)
[2023-03-03] MEDS ORDERED: KCL 20 MEQ ERTAB PO SCH (07:00)
[2023-03-03 08:00] VITALS: BP 117/61
[2023-03-03] MEDS: FAMOTIDINE 20MG TAB PO SCH ×2 (08:54→20:29)
[2023-03-03] MEDS: DOCUSATE SODIUM 100 MG CAP PO SCH ×2 (08:54→20:29)
[2023-03-03] MEDS: METOPROLOL TARTRATE 25 MG TAB PO SCH ×2 (08:54→20:28)
[2023-03-03] MEDS: Vitamin B Complex/Vit C/Folic Acid PO SCH (08:54)
[2023-03-03] MEDS: CITALOPRAM 20 MG TABLET PO SCH (08:54)
[2023-03-03] MEDS: SODIUM BICARBONATE 650 MG TAB PO SCH (08:55)
[2023-03-03] MEDS: MIDODRINE HCL 5 MG TABLET PO SCH (08:55)
[2023-03-03] MEDS: CLOTRIMAZOLE/BETAMETHASONE DIP 45 GM CREAM.GM. TP SCH ×2 (08:59→20:34)
[2023-03-03] MEDS ORDERED: BUMETANIDE 1 MG TAB PO SCH (09:00)
[2023-03-03 12:00] VITALS: BP 129/62
[2023-03-03 16:00] VITALS: BP 115/57
[2023-03-03 19:20] VITALS: BP 108/45
[2023-03-03] MEDS: HYDROCODONE/ACETAMINOPHEN 5/325 MG TAB PO PRN (21:04)
[2023-03-03 23:59] VITALS: BP 127/56
[2023-03-04] VITALS (20 sets, daily range): BP systolic 98–127; BP diastolic 42–63
[2023-03-04] MEDS: LEVOTHYROXINE 112 MCG TABLET PO SCH (05:07)
[2023-03-04] MEDS: INSULIN HUMULIN R 100 UNIT/ML 3ML SQ SCH ×4 (06:32→19:44)
[2023-03-04] MEDS: METOPROLOL TARTRATE 25 MG TAB PO SCH ×2 (09:00→19:38)
[2023-03-04] MEDS: CLOTRIMAZOLE/BETAMETHASONE DIP 45 GM CREAM.GM. TP SCH ×2 (09:00→19:39)
[2023-03-04] MEDS: MIDODRINE HCL 5 MG TABLET PO SCH (09:30)
[2023-03-04] MEDS: FAMOTIDINE 20MG TAB PO SCH ×2 (10:10→19:37)
[2023-03-04] MEDS: Vitamin B Complex/Vit C/Folic Acid PO SCH (10:10)
[2023-03-04] MEDS: SODIUM BICARBONATE 650 MG TAB PO SCH (10:10)
[2023-03-04] MEDS: DOCUSATE SODIUM 100 MG CAP PO SCH ×2 (10:10→19:37)
[2023-03-04] MEDS: CITALOPRAM 20 MG TABLET PO SCH (10:10)
[2023-03-04] MEDS: EPOETIN ALFA-EPBX (NON-ESRD) 10,000 UNIT/ML VIAL SQ SCH (10:11)
[2023-03-04] MEDS: HYDROCODONE/ACETAMINOPHEN 5/325 MG TAB PO PRN (10:57)
[2023-03-04] MEDS: HEPARIN 5,000 UNIT VIAL IV SCH (13:34)
[2023-03-05 03:41] VITALS: BP 113/43
[2023-03-05] MEDS: INSULIN HUMULIN R 100 UNIT/ML 3ML SQ SCH ×4 (05:26→20:51)
[2023-03-05] MEDS: LEVOTHYROXINE 112 MCG TABLET PO SCH (05:55)
[2023-03-05] MEDS: MIDODRINE HCL 5 MG TABLET PO SCH (07:47)
[2023-03-05 08:00] VITALS: BP 106/47
[2023-03-05] MEDS: CLOTRIMAZOLE/BETAMETHASONE DIP 45 GM CREAM.GM. TP SCH ×2 (09:00→20:21)
[2023-03-05] MEDS: METOPROLOL TARTRATE 25 MG TAB PO SCH ×2 (09:00→20:20)
[2023-03-05] MEDS: DOCUSATE SODIUM 100 MG CAP PO SCH ×2 (09:35→20:20)
[2023-03-05] MEDS: Vitamin B Complex/Vit C/Folic Acid PO SCH (09:35)
[2023-03-05] MEDS: FAMOTIDINE 20MG TAB PO SCH ×2 (09:35→20:20)
[2023-03-05] MEDS: SODIUM BICARBONATE 650 MG TAB PO SCH (09:37)
[2023-03-05] MEDS: CITALOPRAM 20 MG TABLET PO SCH (09:37)
[2023-03-05 11:14] LABS: HEMATOCRIT 22.1 % (36-48); MEAN CORPUSCULAR HEMOGLOBIN 30.8 pg (27.0-33.0); MEAN CORPUSCULAR HGB CONC 31.2 g/dL (32.0-36.0); MEAN CORPUSCULAR VOLUME 98.7 fL (79-99); RED BLOOD CELL COUNT(AUTO) 2.24 MIL/uL (4.00-5.50); RED CELL DISTRIBUTION WIDTH 17.2 % (11.0-15.5)
[2023-03-05 12:00] VITALS: BP_SYST 110; BP_SYST 88; BP_DIAS 38; BP_DIAS 52
[2023-03-05] MEDS: ACETAMINOPHEN 325 MG TAB PO PRN (14:54)
[2023-03-05 16:00] VITALS: BP 120/52
[2023-03-05 19:00] VITALS: BP 124/61
[2023-03-06 05:00] VITALS: BP 133/51
[2023-03-06] MEDS: INSULIN HUMULIN R 100 UNIT/ML 3ML SQ SCH ×4 (05:38→20:55)
[2023-03-06] MEDS: LEVOTHYROXINE 112 MCG TABLET PO SCH (05:38)
[2023-03-06 06:01] LABS: BASOPHILS % (AUTO) 0.5 % (0.0-5.0); EOSINOPHILS % (AUTO) 1.8 % (0.0-8.0); HEMATOCRIT 27.4 % (36-48); LYMPHOCYTES % (AUTO) 9.8 % (21.0-51.0); MEAN CORPUSCULAR HEMOGLOBIN 31.1 pg (27.0-33.0); MEAN CORPUSCULAR HGB CONC 33.2 g/dL (32.0-36.0); MEAN CORPUSCULAR VOLUME 93.5 fL (79-99); MONOCYTES % (AUTO) 11.7 % (3.0-13.0); NEUTROPHILS % (AUTO) 73.7 % (40.0-77.0); PLATELET COUNT (AUTO) 159 K/uL (130-400); RED BLOOD CELL COUNT(AUTO) 2.93 MIL/uL (4.00-5.50); RED CELL DISTRIBUTION WIDTH 17.2 % (11.0-15.5); WHITE BLOOD COUNT (AUTO) 9.7 K/uL (4.8-10.8)
[2023-03-06 06:21] LABS: CREATININE 4.2 mg/dL (0.5-1.5); PHOSPHORUS 4.2 mg/dL (2.5-4.9); POTASSIUM 3.3 mmol/L (3.5-5.1)
[2023-03-06 08:00] VITALS: BP 130/54
[2023-03-06] MEDS: METOPROLOL TARTRATE 25 MG TAB PO SCH ×2 (09:09→19:28)
[2023-03-06] MEDS: Vitamin B Complex/Vit C/Folic Acid PO SCH (09:10)
[2023-03-06] MEDS: DOCUSATE SODIUM 100 MG CAP PO SCH ×2 (09:10→19:28)
[2023-03-06] MEDS: FAMOTIDINE 20MG TAB PO SCH ×2 (09:11→19:28)
[2023-03-06] MEDS: ACETAMINOPHEN 325 MG TAB PO PRN (09:11)
[2023-03-06] MEDS: CITALOPRAM 20 MG TABLET PO SCH (09:15)
[2023-03-06] MEDS: SODIUM BICARBONATE 650 MG TAB PO SCH (09:15)
[2023-03-06] MEDS: MIDODRINE HCL 5 MG TABLET PO SCH (09:30)
[2023-03-06 11:41] VITALS: BP 123/48
[2023-03-06 16:00] VITALS: BP 124/58
[2023-03-06] MEDS: CLOTRIMAZOLE/BETAMETHASONE DIP 45 GM CREAM.GM. TP SCH ×3 (16:30→19:28)
[2023-03-06 19:00] VITALS: BP 139/60
[2023-03-06 23:18] VITALS: BP 138/72
[2023-03-07] VITALS (19 sets, daily range): BP systolic 92–148; BP diastolic 46–64
[2023-03-07] MEDS: LEVOTHYROXINE 112 MCG TABLET PO SCH (04:53)
[2023-03-07] MEDS: INSULIN HUMULIN R 100 UNIT/ML 3ML SQ SCH ×4 (05:31→20:52)
[2023-03-07 06:19] LABS: BASOPHILS % (AUTO) 0.5 % (0.0-5.0); EOSINOPHILS % (AUTO) 1.1 % (0.0-8.0); HEMATOCRIT 25.7 % (36-48); LYMPHOCYTES % (AUTO) 12.9 % (21.0-51.0); MEAN CORPUSCULAR HEMOGLOBIN 30.9 pg (27.0-33.0); MEAN CORPUSCULAR HGB CONC 33.1 g/dL (32.0-36.0); MEAN CORPUSCULAR VOLUME 93.5 fL (79-99); MONOCYTES % (AUTO) 14.5 % (3.0-13.0); NEUTROPHILS % (AUTO) 66.2 % (40.0-77.0); PLATELET COUNT (AUTO) 141 K/uL (130-400); RED BLOOD CELL COUNT(AUTO) 2.75 MIL/uL (4.00-5.50); RED CELL DISTRIBUTION WIDTH 17.1 % (11.0-15.5); WHITE BLOOD COUNT (AUTO) 8.4 K/uL (4.8-10.8)
[2023-03-07 06:37] LABS: CREATININE 4.4 mg/dL (0.5-1.5); PHOSPHORUS 4.3 mg/dL (2.5-4.9); POTASSIUM 3.1 mmol/L (3.5-5.1)
[2023-03-07] MEDS: FAMOTIDINE 20MG TAB PO SCH ×2 (08:50→20:48)
[2023-03-07] MEDS: Vitamin B Complex/Vit C/Folic Acid PO SCH (08:50)
[2023-03-07] MEDS: METOPROLOL TARTRATE 25 MG TAB PO SCH ×2 (08:50→20:48)
[2023-03-07] MEDS: DOCUSATE SODIUM 100 MG CAP PO SCH ×2 (08:50→20:48)
[2023-03-07] MEDS: SODIUM BICARBONATE 650 MG TAB PO SCH (08:50)
[2023-03-07] MEDS: CITALOPRAM 20 MG TABLET PO SCH (08:50)
[2023-03-07] MEDS: CLOTRIMAZOLE/BETAMETHASONE DIP 45 GM CREAM.GM. TP SCH ×2 (08:51→21:02)
[2023-03-07] MEDS: MIDODRINE HCL 5 MG TABLET PO SCH (08:56)
[2023-03-07] MEDS ORDERED: TIGECYCLINE 100 MG in 0.9%NACL 100ML 100 ML IV SCH (14:00)
[2023-03-07] MEDS ORDERED: PHARMACY COMMUNICATION MISC SCH (14:00)
[2023-03-07] MEDS: HEPARIN 5,000 UNIT VIAL IV SCH (14:23)
[2023-03-07] MEDS ORDERED: COMPOUND IV MISC 1 EACH IVSOLN MISC PRN (14:30)
[2023-03-07] MEDS ORDERED: COMPOUND IV REFRIGERATED 1 EACH IVSOLN MISC PRN (14:30)
[2023-03-07] MEDS: EPOETIN ALFA-EPBX (NON-ESRD) 10,000 UNIT/ML VIAL SQ SCH (14:39)
[2023-03-07] MEDS: ACETAMINOPHEN 325 MG TAB PO PRN (21:00)
[2023-03-07] MEDS ORDERED: TIGECYCLINE 50 MG in 0.9%NACL 100ML 100 ML IV SCH (23:00)
== END 2023-03-07 21:20 | DRG 673 ==
LOC: EDH 07:57 → DIRECT 07:58 → 3AH 11:09
PROVIDERS: ADMIT Internal Medicine; ATTEND Internal Medicine
PROC: 0JH63XZ Insertion of Tunneled Vascular Access Device into Chest Subcutaneous Tissue and Fascia, Percutaneous Approach (ICD-10-PCS; 2023-02-28)
PROC: 02H633Z Insertion of Infusion Device into Right Atrium, Percutaneous Approach (ICD-10-PCS; 2023-02-28)
PROC: B5181ZA Fluoroscopy of Superior Vena Cava using Low Osmolar Contrast, Guidance (ICD-10-PCS; 2023-02-28)
PROC: B548ZZA Ultrasonography of Superior Vena Cava, Guidance (ICD-10-PCS; 2023-02-28)
PROC: 5A1D70Z Performance of Urinary Filtration, Intermittent, Less than 6 Hours Per Day (ICD-10-PCS; 2023-02-28)
PROC: 0XBK0ZZ Excision of Left Hand, Open Approach (ICD-10-PCS; principal; 2023-03-01)
PROC: 5A1D70Z Performance of Urinary Filtration, Intermittent, Less than 6 Hours Per Day (ICD-10-PCS; 2023-03-01)
PROC: 5A1D70Z Performance of Urinary Filtration, Intermittent, Less than 6 Hours Per Day (ICD-10-PCS; 2023-03-02)
PROC: 5A1D70Z Performance of Urinary Filtration, Intermittent, Less than 6 Hours Per Day (ICD-10-PCS; 2023-03-04)
PROC: 30233N1 Transfusion of Nonautologous Red Blood Cells into Peripheral Vein, Percutaneous Approach (ICD-10-PCS; 2023-03-05)
PROC: 5A1D70Z Performance of Urinary Filtration, Intermittent, Less than 6 Hours Per Day (ICD-10-PCS; 2023-03-07)
DX: I12.0 Hypertensive chronic kidney disease with stage 5 chronic kidney disease or end stage renal disease (principal); N18.6 End stage renal disease; N17.9 Acute kidney failure, unspecified; D84.821 Immunodeficiency due to drugs; Z16.24 Resistance to multiple antibiotics; E87.5 Hyperkalemia; E11.65 Type 2 diabetes mellitus with hyperglycemia; E11.22 Type 2 diabetes mellitus with diabetic chronic kidney disease; E03.9 Hypothyroidism, unspecified; D64.9 Anemia, unspecified; R29.6 Repeated falls; E66.09 Other obesity due to excess calories; Z96.641 Presence of right artificial hip joint; W57.XXXD Bitten or stung by nonvenomous insect and other nonvenomous arthropods, subsequent encounter; E11.51 Type 2 diabetes mellitus with diabetic peripheral angiopathy without gangrene; Z79.60 Long term (current) use of unspecified immunomodulators and immunosuppressants; Z83.3 Family history of diabetes mellitus; Z90.710 Acquired absence of both cervix and uterus; Z99.2 Dependence on renal dialysis; Z68.28 Body mass index [BMI] 28.0-28.9, adult
CPT/HCPCS: 36415; 36430; 36558; 71045; 77001; 80048; 80053; 82948; 84100; 85025; 85027; 85610; 85730; 86704; 86706; 86850; 86900; 86901; 86923; 87070; 87076; 87077; 87186; 87340; 90935; 93005; 97039; C1750; G0378; J1644; J1756; J1815; J2405; J3243; J3490; J7050; P9016

== ENCOUNTER 2024-07-22 13:49 | Inpatient (IN) | payer OTHER ==
[~2024-07-22] VITALS: Ht 167.6 cm; Wt 77.9 kg
[~2024-07-22 13:49] MED LIST changes: +ACET-2247 PO; +CITA-106 PO; +FOLI0.8T2 PO; -HUM100IN SQ; +METO25TA6 PO; +MIDO10TA PO; +SEVE800T27 PO; -TEMA15CA5 PO; +TRAM50TA4 PO; +TRAZ-185 PO
[2024-07-22 15:26] LABS: BASOPHILS # (AUTO) 0.55 K/uL (0.00-0.20); BASOPHILS % (AUTO) 2.3 % (0.0-5.0); EOSINOPHILS # (AUTO) 1.57 K/uL (0.00-0.70); EOSINOPHILS % (AUTO) 6.4 % (0.0-8.0); LYMPHOCYTES # (AUTO) 1.1 K/uL (1.0-4.8); LYMPHOCYTES % (AUTO) 4.4 % (21.0-51.0); MEAN CORPUSCULAR HEMOGLOBIN 29.7 pg (27.0-33.0); MONOCYTES # (AUTO) 2.1 K/uL (0.1-1.0); MONOCYTES % (AUTO) 8.7 % (3.0-13.0); NEUTROPHILS # (AUTO) 18.3 K/uL (1.8-7.7); NEUTROPHILS % (AUTO) 74.9 % (40.0-77.0); PLATELET COUNT (AUTO) 235 K/uL (130-400); RED CELL DISTRIBUTION WIDTH 14.6 % (11.0-15.5); WHITE BLOOD COUNT (AUTO) 24.4 K/uL (4.8-10.8)
[2024-07-22 15:42] LABS: INR 1.04 (0.85-1.15); PROTHROMBIN TIME 11.2 SEC (9.6-11.6)
[2024-07-22 15:45] LABS: POTASSIUM 3.6 mmol/L (3.5-5.1)
[2024-07-22] MEDS ORDERED: INSU10VI3 SQ (16:57)
[2024-07-22] MEDS ORDERED: LACT1CAP26 PO (16:57)
[2024-07-22] MEDS ORDERED: FOLI0.8T22 PO (16:57)
[2024-07-22] MEDS ORDERED: METO-408 PO (16:57)
[2024-07-22] MEDS ORDERED: IPRA4AER IH (16:57)
[2024-07-22] MEDS ORDERED: BIOT5000 PO (16:57)
[2024-07-22] MEDS ORDERED: LEVO112C4 PO (16:57)
[2024-07-22 17:40] LABS: APPEARANCE,URINE CLEAR (CLEAR); BILIRUBIN,URINE NEGATIVE (NEGATIVE); COLOR,URINE YELLOW (YELLOW); GLUCOSE, URINE (UA) 500 mg/dL (NEGATIVE); KETONES,URINE NEGATIVE (NEGATIVE); LEUKOCYTE ESTERASE ,URINE NEGATIVE Leu/uL (NEGATIVE); NITRATE,URINE NEGATIVE (NEGATIVE); OCCULT BLOOD,URINE NEGATIVE (NEGATIVE); PH,URINE 6.5 (5.0-8.0); PROTEIN,URINE 600 mg/dL (NEGATIVE); RBC,URINE 0-1 /HPF (0-1); UROBILINOGEN,URINE 0.2 mg/dL (0.2-1.0)
[2024-07-22] MEDS: HEParin 5,000 UNIT VIAL IV PRN (17:57)
[2024-07-22] MEDS: HEParin 25,000 UNITS/250ML D5W 250 ML IV SCH (17:58)
[2024-07-22] MEDS: guaiFENesin-DM 200/20MG 10ML PO ONE (20:02)
[2024-07-22] MEDS: INSULIN humuLIN R 100 UNIT/ML 3ML IV ONE (22:30)
[2024-07-22 22:39] VITALS: BP 128/75; PULSE 119; RESP 19; TEMP 98.9
[2024-07-23] VITALS (11 sets, daily range): BP systolic 133–170; BP diastolic 50–80; PULSE 110–121; RESP 16–21; TEMP 98.1–99.3; O2SAT 96–98
[2024-07-23] MEDS ORDERED: PHARMACY COMMUNICATION MISC SCH
[2024-07-23] MEDS ORDERED: IPRA4AER IH (00:03)
[2024-07-23] MEDS: metOPROLol sucCINATE 25 MG TAB.SR.24H PO ONE (00:21)
[2024-07-23] MEDS ORDERED: miDODRine HCL 5 MG TABLET PO PRN (00:30)
[2024-07-23 01:00] LABS: INR 1.06 (0.85-1.15); PROTHROMBIN TIME 11.4 SEC (9.6-11.6)
[2024-07-23 01:01] LABS: PARTIAL THROMBOPLASTIN TIME 48.6 SEC (26.3-35.5)
[2024-07-23] MEDS: traMADol HCL 50 MG TABLET PO PRN (01:15)
[2024-07-23] MEDS: ZOSYN 3.375GM +NS 50ML IVPB SCH ×2 (01:16→17:52)
[2024-07-23] MEDS: DiphenhydrAMINE HCL 25 MG CAPSULE PO ONE (04:36)
[2024-07-23] MEDS: levoTHYROxine 112 MCG TABLET PO SCH (06:23)
[2024-07-23 06:48] LABS: BASOPHILS # (AUTO) 0.52 K/uL (0.00-0.20); BASOPHILS % (AUTO) 2.3 % (0.0-5.0); EOSINOPHILS # (AUTO) 1.78 K/uL (0.00-0.70); EOSINOPHILS % (AUTO) 7.9 % (0.0-8.0); HEMATOCRIT 26.7 % (36-48); IMMATURE GRANULOCYTE ABSOLUTE 0.71 K/uL (0-1); LYMPHOCYTES # (AUTO) 1.5 K/uL (1.0-4.8); LYMPHOCYTES % (AUTO) 6.5 % (21.0-51.0); MEAN CORPUSCULAR HEMOGLOBIN 29.4 pg (27.0-33.0); MEAN CORPUSCULAR HGB CONC 32.2 g/dL (32.0-36.0); MEAN CORPUSCULAR VOLUME 91.1 fL (79-99); MONOCYTES # (AUTO) 2.1 K/uL (0.1-1.0); MONOCYTES % (AUTO) 9.3 % (3.0-13.0); NEUTROPHILS # (AUTO) 16.1 K/uL (1.8-7.7); NEUTROPHILS % (AUTO) 70.9 % (40.0-77.0); PLATELET COUNT (AUTO) 230 K/uL (130-400); RED BLOOD CELL COUNT(AUTO) 2.93 MIL/uL (4.00-5.50); RED CELL DISTRIBUTION WIDTH 14.7 % (11.0-15.5); WHITE BLOOD COUNT (AUTO) 22.7 K/uL (4.8-10.8)
[2024-07-23 07:07] LABS: INR 1.04 (0.85-1.15); PROTHROMBIN TIME 11.2 SEC (9.6-11.6)
[2024-07-23] MEDS: IpraTROPium/alBUTERol SULFATE 3 ML SOLUTION IH ONE (07:08)
[2024-07-23] MEDS ORDERED: NON-FORMULARY MEDICATION 1 EACH (Ipratropium/Albuterol Sulfate (Combivent Respimat Inhal S IH SCH (09:00)
[2024-07-23] MEDS: IpraTROPium/alBUTERol SULFATE 3 ML SOLUTION IH SCH (09:00)
[2024-07-23] MEDS: Biotin 5,000 MCG PO SCH (09:00)
[2024-07-23] MEDS: citaLOPram 20 MG TABLET PO SCH (09:09)
[2024-07-23] MEDS: sevELAMer HCL 800 MG TABLET PO SCH (09:09)
[2024-07-23] MEDS: Vitamin B Complex/Vit C/Folic Acid PO SCH (09:09)
[2024-07-23] MEDS ORDERED: VANCOMYCIN PROTOCOL PER PHARMACY IV SCH (09:30)
[2024-07-23] MEDS ORDERED: ZOSYN 3.375GM +NS 50ML IVPB SCH (09:30)
[2024-07-23] MEDS: VANCOMYCIN 2GM/500 ML BAG 500 ML IV ONE (12:22)
[2024-07-23 13:19] LABS: INR 1.42 (0.85-1.15); PROTHROMBIN TIME 14.9 SEC (9.6-11.6)
[2024-07-23 14:10] LABS: PARTIAL THROMBOPLASTIN TIME > 139.0 SEC (26.3-35.5)
[2024-07-23] MEDS ORDERED: hydrALAZine 20MG/ML VIAL IV PRN (18:00)
[2024-07-23] MEDS ORDERED: ondanSETRON 4MG INJ IVP PRN (18:00)
[2024-07-23] MEDS ORDERED: 0.9% NACL 500ML IV.SOLN 500 ML IV SCH (18:00)
[2024-07-23] MEDS ORDERED: HEParin 5,000 UNIT VIAL SQ ONE (19:30)
[2024-07-23] MEDS: trAZOdone HCL 50 MG TAB PO PRN (20:23)
[2024-07-23] MEDS: HEParin 5,000 UNIT VIAL SQ ONE (20:42)
[2024-07-23] MEDS: BALSAM PERU/CASTOR OIL 60 GM TUBE TP SCH (20:44)
[2024-07-24] VITALS (25 sets, daily range): BP systolic 94–145; BP diastolic 47–83; PULSE 89–125; RESP 16–32; TEMP 97.8–99; O2SAT 95–97
[2024-07-24 01:05] LABS: INR 1.04 (0.85-1.15); PROTHROMBIN TIME 11.2 SEC (9.6-11.6)
[2024-07-24 01:06] LABS: PARTIAL THROMBOPLASTIN TIME 42.9 SEC (26.3-35.5)
[2024-07-24] MEDS: HEParin 5,000 UNIT VIAL SQ ONE (01:55)
[2024-07-24 06:42] LABS: BASOPHILS # (AUTO) 0.48 K/uL (0.00-0.20); BASOPHILS % (AUTO) 2.2 % (0.0-5.0); EOSINOPHILS % (AUTO) 8.2 % (0.0-8.0); LYMPHOCYTES # (AUTO) 1.7 K/uL (1.0-4.8); LYMPHOCYTES % (AUTO) 7.8 % (21.0-51.0); MEAN CORPUSCULAR HEMOGLOBIN 29.5 pg (27.0-33.0); MEAN CORPUSCULAR HGB CONC 32.5 g/dL (32.0-36.0); MEAN CORPUSCULAR VOLUME 90.9 fL (79-99); MONOCYTES # (AUTO) 2.3 K/uL (0.1-1.0); MONOCYTES % (AUTO) 10.2 % (3.0-13.0); PLATELET COUNT (AUTO) 211 K/uL (130-400); RED BLOOD CELL COUNT(AUTO) 2.64 MIL/uL (4.00-5.50); WHITE BLOOD COUNT (AUTO) 22.1 K/uL (4.8-10.8)
[2024-07-24 06:54] LABS: INR 1.04 (0.85-1.15); PROTHROMBIN TIME 11.2 SEC (9.6-11.6)
[2024-07-24 06:55] LABS: CREATININE 7.8 mg/dL (0.5-1.0); PARTIAL THROMBOPLASTIN TIME 48.2 SEC (26.3-35.5); PHOSPHORUS 5.3 mg/dL (2.5-4.9); POTASSIUM 4.4 mmol/L (3.5-5.1)
[2024-07-24] MEDS: 0.9%NACL 1000ML 1,000 ML IV SCH (10:00)
[2024-07-24] MEDS: HONEY 1 APPL/ML TUBE TP SCH (10:00)
[2024-07-24 13:43] LABS: INR 1.03 (0.85-1.15); PROTHROMBIN TIME 11.1 SEC (9.6-11.6)
[2024-07-24 13:45] LABS: PARTIAL THROMBOPLASTIN TIME 39.3 SEC (26.3-35.5)
[2024-07-24] MEDS: HEParin 5,000 UNIT VIAL IRRIG SCH (17:28)
[2024-07-24] MEDS: metOPROLol sucCINATE 25 MG TAB.SR.24H PO SCH (18:08)
[2024-07-24] MEDS: EPOETIN ALFA-EPBX (NON-ESRD) 10,000 UNIT/ML VIAL SQ SCH (18:09)
[2024-07-24] MEDS: BACITRACIN 28.4 GM OINT TP ONE (18:35)
[2024-07-24 19:37] LABS: INR 1.02 (0.85-1.15)
[2024-07-24] MEDS: DiphenhydrAMINE HCL 25 MG CAPSULE PO PRN (20:15)
[2024-07-24] MEDS: acetaMINOPHEN 325 MG TAB PO PRN (20:15)
[2024-07-25] VITALS (15 sets, daily range): BP systolic 110–162; BP diastolic 57–86; PULSE 102–126; RESP 16–20; TEMP 98.2–98.6; O2SAT 96–100
[2024-07-25 02:12] LABS: INR 1.04 (0.85-1.15); PROTHROMBIN TIME 11.2 SEC (9.6-11.6)
[2024-07-25 09:34] LABS: HEPATITIS B SURFACE ANTIBODY Positive (Reactive); HEPATITIS B SURFACE ANTIGEN Non-Reactive (Nonreactive); HEPATITIS C ANTIBODY Non-Reactive (Nonreactive)
[2024-07-25 14:09] LABS: HEPATITIS B CORE AB TOTAL Non-Reactive (Nonreactive)
[2024-07-25] MEDS: metOPROLol sucCINATE 25 MG TAB.SR.24H PO SCH (15:43)
[2024-07-25] MEDS: VANCOMYCIN 750MG VIAL IVPB SCH (16:00)
[2024-07-25 16:21] LABS: INR 1.02 (0.85-1.15)
[2024-07-25 16:22] LABS: PARTIAL THROMBOPLASTIN TIME 38.7 SEC (26.3-35.5)
[2024-07-25] MEDS: VANCOMYCIN 1G/250ML KIT 250 ML IV ONE (18:34)
[2024-07-25] MEDS: doCUSate SODIUM 100 MG CAP PO ONE (21:45)
[2024-07-25 23:22] LABS: INR 1.06 (0.85-1.15); PROTHROMBIN TIME 11.4 SEC (9.6-11.6)
[2024-07-25 23:24] LABS: PARTIAL THROMBOPLASTIN TIME 57.2 SEC (26.3-35.5)
[2024-07-26] VITALS (26 sets, daily range): BP systolic 99–153; BP diastolic 49–82; PULSE 87–121; RESP 16–20; TEMP 97.5–98.3; O2SAT 96–100
[2024-07-26 05:21] LABS: BASOPHILS % (AUTO) 2.2 % (0.0-5.0); EOSINOPHILS # (AUTO) 1.76 K/uL (0.00-0.70); EOSINOPHILS % (AUTO) 6.6 % (0.0-8.0); HEMATOCRIT 24.1 % (36-48); IMMATURE GRANULOCYTE ABSOLUTE 1.09 K/uL (0-1); LYMPHOCYTES # (AUTO) 1.8 K/uL (1.0-4.8); LYMPHOCYTES % (AUTO) 6.7 % (21.0-51.0); MEAN CORPUSCULAR HEMOGLOBIN 29.8 pg (27.0-33.0); MEAN CORPUSCULAR HGB CONC 32.4 g/dL (32.0-36.0); MONOCYTES # (AUTO) 2.7 K/uL (0.1-1.0); MONOCYTES % (AUTO) 10.1 % (3.0-13.0); NEUTROPHILS # (AUTO) 18.8 K/uL (1.8-7.7); NEUTROPHILS % (AUTO) 70.3 % (40.0-77.0); PLATELET COUNT (AUTO) 216 K/uL (130-400); RED BLOOD CELL COUNT(AUTO) 2.62 MIL/uL (4.00-5.50); WHITE BLOOD COUNT (AUTO) 26.7 K/uL (4.8-10.8)
[2024-07-26 05:38] LABS: INR 1.03 (0.85-1.15); PROTHROMBIN TIME 11.1 SEC (9.6-11.6)
[2024-07-26 05:39] LABS: PARTIAL THROMBOPLASTIN TIME 61.2 SEC (26.3-35.5)
[2024-07-26] MEDS ORDERED: hydrOXYzine 25 MG TABLET PO PRN (20:00)
[2024-07-26] MEDS: VANCOMYCIN 750MG VIAL IVPB SCH (21:22)
[2024-07-26] MEDS: APIXaban 5 MG TABLET PO SCH (21:23)
[2024-07-26] MEDS: DEXTROSE 50%-WATER 50 ML DISP.SYRIN IV ONE (22:46)
[2024-07-27] VITALS (7 sets, daily range): BP systolic 131–135; BP diastolic 64–71; PULSE 102–120; RESP 18–20; TEMP 97.7–98.5; O2SAT 97–99
== END 2024-07-27 16:15 | DRG 871 ==
LOC: EDH 13:49 → EDHIP 17:26 → 3CH 22:30
PROVIDERS: ADMIT Internal Medicine Hematology & Oncology; ATTEND Internal Medicine Hematology & Oncology
PROC: 5A1D70Z Performance of Urinary Filtration, Intermittent, Less than 6 Hours Per Day (ICD-10-PCS; principal; 2024-07-24)
PROC: 5A1D70Z Performance of Urinary Filtration, Intermittent, Less than 6 Hours Per Day (ICD-10-PCS; 2024-07-26)
PROC: 5A09357 Assistance with Respiratory Ventilation, Less than 24 Consecutive Hours, Continuous Positive Airway Pressure (ICD-10-PCS; 2024-07-26)
DX: A41.9 Sepsis, unspecified organism (principal); N18.6 End stage renal disease; D75.81 Myelofibrosis; I82.621 Acute embolism and thrombosis of deep veins of right upper extremity; L03.113 Cellulitis of right upper limb; I12.0 Hypertensive chronic kidney disease with stage 5 chronic kidney disease or end stage renal disease; I82.A11 Acute embolism and thrombosis of right axillary vein; D64.9 Anemia, unspecified; E03.9 Hypothyroidism, unspecified; I48.0 Paroxysmal atrial fibrillation; E11.22 Type 2 diabetes mellitus with diabetic chronic kidney disease; E78.00 Pure hypercholesterolemia, unspecified; I45.10 Unspecified right bundle-branch block; Z99.2 Dependence on renal dialysis; Z91.018 Allergy to other foods; W18.39XA Other fall on same level, initial encounter; Y93.89 Activity, other specified; Y92.89 Other specified places as the place of occurrence of the external cause; Y99.8 Other external cause status; Z79.01 Long term (current) use of anticoagulants; Z79.4 Long term (current) use of insulin; Z90.710 Acquired absence of both cervix and uterus; Z90.49 Acquired absence of other specified parts of digestive tract; Z88.8 Allergy status to other drugs, medicaments and biological substances
CPT/HCPCS: 36415; 71045; 73562; 80048; 80202; 81001; 82948; 83605; 84100; 85025; 85610; 85730; 86704; 86706; 86803; 87040; 87340; 90935; 93005; 93971; 94640; 94664; 99291; G0378; J1644; J1815; J2543; J3370; J7070; Q0163; Q5106

== ENCOUNTER 2025-01-17 07:51 | Observation (INO) | payer OTHER ==
[~2025-01-17] VITALS: Ht 157.5 cm; Wt 86.2 kg
[2025-01-17] VITALS (12 sets, daily range): BP systolic 80–112; BP diastolic 32–65; PULSE 79–94; RESP 16; TEMP 97.5–97.7
[~2025-01-17 07:51] MED LIST changes: +AMOX-426 PO; +BIOT5000 PO; +INSU10VI3 SQ; +LEVO112C4 PO; +METO-391 PO; -METO25TA6 PO; -MIDO10TA PO; +MIDO10TA3 PO
--- NOTE | 2025-01-17 08:20 | EKG ---
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
--- NOTE | 2025-01-17 08:24 | NUR ---
PT JUST NOW PLACED IN MY ED BED 9.
[2025-01-17 08:39] LABS: ABG BASE EXCESS 0.9 mmol/L (-2.0-3.0); ABG HCO3 27.6 mmol/L (21.0-28.0); ABG OXYGEN SATURATION 97.4 % (94.0-98.0); ABG PCO2 52 mmHg (32-45); PO2, ARTERIAL BG 104.5 mmHg (83.0-108.0); VENT MODE, BG NC (ROOM AIR)
--- NOTE | 2025-01-17 08:58 | NUR ---
ASSESSMENT CONTINUED: PT HAS GENERALIZED ECCHYMOTIC PATCHES IN VARIOUS SIZES AND STAGES TO ALL EXTREMTIES WELL VARIOUS SIZES OF LESIONS TO BOTH UE/LE'S BILATERALLY.
--- NOTE | 2025-01-17 09:22 | NUR ---
NEPHROLOGY: DR LOPEZ JUST IN TO SEE THE PT. PT HAS HD ON [facility]
--- NOTE | 2025-01-17 09:39 | NUR ---
DAUGHTER JUST ARRIVED AND INFORMED OF DR LOPEZ' ORDERS AND PENDING CONSENTS TO BE SIGNED BY HER D/T PT BEING LETHARGIC
[2025-01-17 09:48] LABS: BASOPHILS # (AUTO) 1.41 K/uL (0.00-0.20); BASOPHILS % (AUTO) 4.4 % (0.0-5.0); EOSINOPHILS # (AUTO) 2.73 K/uL (0.00-0.70); EOSINOPHILS % (AUTO) 8.5 % (0.0-8.0); HEMATOCRIT 25.8 % (36-48); IMMATURE GRANULOCYTE ABSOLUTE 2.24 K/uL (0-1); LYMPHOCYTES % (AUTO) 6.1 % (21.0-51.0); MEAN CORPUSCULAR HEMOGLOBIN 29.4 pg (27.0-33.0); MEAN CORPUSCULAR HGB CONC 30.2 g/dL (32.0-36.0); MEAN CORPUSCULAR VOLUME 97.4 fL (79-99); MONOCYTES # (AUTO) 3.4 K/uL (0.1-1.0); MONOCYTES % (AUTO) 10.5 % (3.0-13.0); NEUTROPHILS # (AUTO) 20.4 K/uL (1.8-7.7); NEUTROPHILS % (AUTO) 63.5 % (40.0-77.0); NUCLEATED RED BLOOD CELLS 0.3 % (0.0-0.19); PLATELET COUNT (AUTO) 144 K/uL (130-400); RED BLOOD CELL COUNT(AUTO) 2.65 MIL/uL (4.00-5.50); RED CELL DISTRIBUTION WIDTH 16.8 % (11.0-15.5)
[2025-01-17 09:50] LABS: CREATININE 5.5 mg/dL (0.5-1.0)
[2025-01-17 09:57] LABS: ALBUMIN 2.6 g/dL (3.5-5.0); BILIRUBIN,DIRECT 0.2 mg/dL (0.0-0.3); BILIRUBIN,TOTAL 0.4 mg/dL (0.2-1.0); TOTAL PROTEIN, SERUM 8.2 g/dL (6.0-8.3)
[2025-01-17 10:21] LABS: B-TYPE NATRIURETIC PEPTIDE 622 pg/mL (0-100)
[2025-01-17 10:26] LABS: WHITE BLOOD COUNT (AUTO) 32.1 K/uL (4.8-10.8)
[2025-01-17] MEDS: ZOSYN 3.375GM +NS 50ML IV ONE (10:29)
--- NOTE | 2025-01-17 10:34 | ERN ---
ED Note History of Present Illness Stated Complaint: WEAKNESS Chief Complaint: Weakness Time Seen by MD: 07:55 Dictation: 74-year-old female end-stage renal disease presenting to the emergency department from senior living for generalized weakness more lethargic from baseline, patient has glucose level in the 50s on arrival by EMS given oral glucose. Spoke to instrument worker who recommends admission for repeat dialysis multiple medical problems including severe anemia secondary to myelodysplasia Allergies: Coded Allergies: No Known Drug Allergies (Unverified Allergy, Unknown, 03/13/15) janki (Verified Allergy, Unknown, 07/13/22) linezolid (Unverified Adverse Reaction, Intermediate, ALTERED MENTAL STATUS, 07/23/24) Home Meds Active Scripts Amoxicillin/Potassium Clav (Augmentin 500-125 Tablet) 500 Mg-125 Mg Tablet, 1 TAB PO BID for 7 Days, #14 TAB 0 Refills Prov:JEROME YANEZ PERSONNEL SCHEDULER 09/01/24 Reported Medications Metoprolol Succinate (Metoprolol Succinate) 50 Mg Tab.er.24h, 1 TAB PO DAILY for 30 Days, #30 TAB 0 Refills 08/30/24 Insuln Asp Prt/Insulin Aspart (Novolog Mix 70-30 Vial) 100 Unit/Ml (70-30) Vial, 30 UNITS SQ BID, VIAL 07/22/24 Biotin (Biotin) 5,000 Mcg Tab.rapdis, 5000 MCG PO AM, TAB 07/22/24 Levothyroxine Sodium (Levothyroxine) 112 Mcg Capsule, 112 MCG PO AM, CAP 07/22/24 Sevelamer HCl (Sevelamer HCl) 800 Mg Tablet, 800 MG PO TIDMEALS, TAB 07/09/23 Trazodone HCl (Trazodone HCl) 50 Mg Tablet, 50 MG PO HS PRN for INSOMNIA, TAB 07/09/23 Midodrine HCl (Midodrine HCl) 10 Mg Tablet, 10 MG PO BID PRN for LOW BP, TAB 07/09/23 Acetaminophen (Tylenol) 325 Mg Tablet, 325 MG PO Q6HPRN PRN for PAIN, TAB 02/28/23 Tramadol Hcl (Tramadol HCl) 50 Mg Tablet, 50 MG PO Q6HPRN PRN for PAIN, TAB 02/28/23 Folic Acid/Vitamin B Comp W-C (Nephro-Lourdes Tablet) 0.8 Mg Tablet, 0.8 MG PO AM, TAB 02/28/23 Citalopram Hydrobromide (Celexa 20Mg Tab) 20 Mg Tablet, 20 MG PO AM, TAB 02/28/23 Past Medical History Past Medical History: A-Fib, Diabetes-Type II, High Cholesterol, Hypertension, Hypothyroid Additional Past Medical Hx: CKD STAGE 4, MALIGNANT MYELOFIBROSIS (SEES DR REDDY), COVID 07/06/22 Surgical History: Other Surgical History Other: R CHEST PORT A CATH Social History: Negative, Lives with family History: Not Applicable Review of System Dictation Constitutional: Positive for weakness Eyes: Negative for injury, pain,redness, and discharge ENT: Negative for injury,pain or swelling Cardiovascular: Negative for chest pain, palpitations, and edema Respiratory: Positive for shortness of breath Abdomen/GI: Negative for abdominal pain, nausea, vomiting, diarrhea, and constipation Back: Negative for injury and pain : Negative for injury, bleeding and discharge MS/Extremity: Negative for injury and deformity Skin: Negative for rash, and discoloration Neuro: Per HPI Initial Vital Sign VS Vital Signs Date Time Temp Pulse Resp B/P (MAP) Pulse Ox O2 Delivery O2 Flow Rate FiO2 01/17/25 07:53 97.5 74 16 107/60 99 Room Air 2.0 01/17/25 09:02 100 Physical Exam Dictation General: Appears lethargic and weak, afebrile Head/Face: Normocephalic, atraumatic Eyes: PERRL, EOMI, vision at baseline ENT: oral cavity clear, TMs clear, no signs of infection Neck: Trachea midline, supple, no nuchal rigidity Cardiovascular: RRR, normal S1/S2, No MRGs, no JVD Respiratory: Diminished bilateral breath sounds, crackles at the bases, Abdomen: Soft, non-tender, non-distended, normal bowel sounds, no guarding or rebound. Skin: Warm, dry, normal turgor, no rash MS/Extremity: Pulses equal, no cyanosis, neurovascular intact, FROM Neuro: CVA x4, no focal deficits Results (Laboratory/Radiology) Laboratory/Radiology Laboratory Tests Test 01/17/25 08:37 01/17/25 09:25 01/17/25 09:29 Blood Gas Specimen Type Arterial Arterial Blood pH 7.340 (7.350-7.450) Arterial Blood Partial Pressure CO2 52 mmHg (32-45) H Arterial Blood Partial Pressure O2 104.5 mmHg (83.0-108.0) Arterial Blood HCO3 27.6 mmol/L (21.0-28.0) Arterial Blood Oxygen Saturation 97.4 % (94.0-98.0) Arterial Blood Base Excess 0.9 mmol/L (-2.0-3.0) Blood Gas Temperature 37.0 CELSIUS (35.5-37.0) Blood Gas Flow-by 3.00 L/min (0.00-15.00) Blood Gas Vent Mode NC (ROOM AIR) FiO2 32.0 % Blood Gas Specimen Comment FIORELLA, Sodium Level 135 mmol/L (136-145) L Potassium Level 5.0 mmol/L (3.5-5.1) Chloride Level 98 mmol/L (101-111) L Carbon Dioxide Level 30 mmol/L (21-32) Blood Urea Nitrogen 47 mg/dL (7-18) H Creatinine 5.5 mg/dL (0.5-1.0) H Glomerular Filtration Rate Calc 8 mL/min (>90) Random Glucose 57 mg/dL (70-105) L Lactic Acid Level 1.3 mmol/L (0.8-2.5) Total Calcium 8.7 mg/dL (8.5-10.1) Total Bilirubin 0.4 mg/dL (0.2-1.0) Direct Bilirubin 0.2 mg/dL (0.0-0.3) Aspartate Amino Transf (AST/SGOT) 43 U/L (10-37) H Alanine Aminotransferase (ALT/SGPT) 29 U/L (12-78) Alkaline Phosphatase 217 U/L (50-136) H Total Creatine Kinase 20 U/L (21-232) L Troponin I High Sensitivity 8 ng/L (4-50) Total Protein 8.2 g/dL (6.0-8.3) Albumin 2.6 g/dL (3.5-5.0) L White Blood Count 32.1 K/uL (4.8-10.8) *H Red Blood Count 2.65 MIL/uL (4.00-5.50) L Hemoglobin 7.8 g/dL (12.0-16.0) L Hematocrit 25.8 % (36-48) L Mean Corpuscular Volume 97.4 fL (79-99) Mean Corpuscular Hemoglobin 29.4 pg (27.0-33.0) Mean Corpuscular Hemoglobin Concent 30.2 g/dL (32.0-36.0) L Red Cell Distribution Width 16.8 % (11.0-15.5) H Platelet Count 144 K/uL (130-400) Mean Platelet Volume 13.7 fL (7.5-10.5) H Immature Granulocyte % (Auto) 7.0 % (0-1) H Neutrophils (%) (Auto) 63.5 % (40.0-77.0) Lymphocytes (%) (Auto) 6.1 % (21.0-51.0) L Monocytes (%) (Auto) 10.5 % (3.0-13.0) Eosinophils (%) (Auto) 8.5 % (0.0-8.0) H Basophils (%) (Auto) 4.4 % (0.0-5.0) Neutrophils # (Auto) 20.4 K/uL (1.8-7.7) H Lymphocytes # (Auto) 2.0 K/uL (1.0-4.8) Monocytes # (Auto) 3.4 K/uL (0.1-1.0) H Eosinophils # (Auto) 2.73 K/uL (0.00-0.70) H Basophils # (Auto) 1.41 K/uL (0.00-0.20) H Absolute Immature Granulocyte (auto 2.24 K/uL (0-1) H Nucleated Red Blood Cells 0.3 % (0.0-0.19) H B-Type Natriuretic Peptide 622 pg/mL (0-100) H EKG Comment: NSR, HR 71, RBBB, no STEMI ED Course ED Course Orders Procedure Category Date Status Time 12 Lead Ekg Tracing- EKG 01/17/25 Complete Technical 07:56 B-Type Natriuretic LAB 01/17/25 In Process Peptide 07:56 Basic Metabolic Panel LAB 01/17/25 Complete 07:56 Blood Cult OLIVERIO 01/17/25 In Process 07:56 Cbc With Differential LAB 01/17/25 In Process 07:56 Creatine Kinase, Total LAB 01/17/25 Complete 07:56 Hepatic Function Panel LAB 01/17/25 Complete 07:56 Lactic Acid LAB 01/17/25 Complete 07:56 Troponin I High LAB 01/17/25 Complete Sensitivity 07:56 Urinalysis Profile LAB 01/17/25 Logged 07:56 Chest 1vw RAD 01/17/25 Taken 07:56 Arterial Blood Gas RT 01/17/25 Transmitted 08:07 Zosyn 3.375gm+Ns 50ml PHA 01/17/25 Complete (Zosyn 3.375gm+Ns 08:30 Arterial Blood Gas LAB 01/17/25 Complete 08:37 Obtain Consent For CPOE 01/17/25 Transmitted Hemodialysi 09:27 Type And Screen BBK 01/17/25 In Process 09:27 *Nursing CPOE 01/17/25 Transmitted Communication: 09:27 Vancomycin 750mg PHA 01/17/25 Complete (Vancomycin 750mg) 09:30 0.9% Nacl 250ml (Ns PHA 01/17/25 Complete 250ml) 09:30 Rbc-No Active Bleeding BBK 01/17/25 In Process 09:27 Ammonia LAB 01/17/25 In Process 10:12 Manual Differential LAB 01/17/25 In Process 09:29 Current Medications Medications (Trade) Dose Ordered Sig/Tori Route PRN Reason Start Time Stop Time Status Last Admin Dose Admin Piperacillin Sod/ Tazobactam Sod (Zosyn 3.375gm+NS 50ml) 3.375 gm ONCE ONCE IV 01/17/25 08:30 01/17/25 08:31 DC 01/17/25 10:29 Sodium Chloride (NS 250ml) 250 ml ONCE ONCE IVPB 01/17/25 09:30 01/17/25 09:35 DC Vancomycin HCl (Vancomycin 750mg) 750 mg ONCE ONCE IVPB 01/17/25 09:30 01/17/25 09:35 DC Vital Signs Date Time Temp Pulse Resp B/P (MAP) Pulse Ox O2 Delivery O2 Flow Rate FiO2 01/17/25 09:02 78 17 107/56 97 Non-Rebreather+ 12 100 01/17/25 07:53 97.5 74 16 107/60 99 Room Air 2.0 Medical Decision Making MDM MDM: Differential diagnosis: Rationale: Tests considered and ordered secondary to shared decision making include: labs, ECG and radiology Previous outside records reviewed: Old ER visits. Risk of complication and/or morbidity or mortality of patient management: None Medications-Per medication reconciliation Need for hospitalization: Patient does meet criteria for hospitalization. Need for emergency major/minor surgery: No There are no social concerns with this patient. Prescription drug management Prescriptions will include symptomatic care Patient's prior external medical records from other ER visits were reviewed by me as indicated. Prior testing and results from previous visits were reviewed. Prior tests were taken into account with medical decision making and resource utilization, independent historian/historians were used to obtain complete medical history. I independently interpreted the test that were performed, results were reviewed by me and considered findings on radiology if ordered. Medical management and examination interpretation discussions were had by me with other qualified healthcare professionals as indicated for the patient's care. 74-year-old female end-stage renal disease fluid overloaded generalized weakness, hemodynamically stable admitting for further care and evaluation instrument worker saw at bedside recommends repeat dialysis, pending ammonia. Start ed on broad-spectrum antibiotics rule out occult sepsis. Critical Care Note Comment(s) Total critical care time was 33 minutes. Excluding time for procedures. Management of critically ill patient with concern for acute decompensation. Management included interpretation of laboratory values and imaging, hemodynamics, time for consultation with consultants and admitting physician. DX & DISP Disposition: Inpatient Departure Impression: Primary Impression: ESRD (end stage renal disease) on dialysis Additional Impressions: Sepsis, Pulmonary edema Condition: Stable Referrals: SEAN THOMAS MD (PCP) JAIDEN CABALLERO MD Jan 17, 2025 10:34
--- NOTE | 2025-01-17 10:43 | HMCIMG ---
Exam Type: CHEST 1VW Clinical Information: GBW Comparison: None Findings: Right permacath line is noted with tip at the distal superior vena caval level. Ill-defined infiltrates of both lungs are seen consistent with bilateral pneumonia. The heart is large in size. The bony and soft tissue structures show no worrisome pathology. IMPRESSION: Findings consistent with pneumonia. Cardiomegaly. Follow-up is advised.
[2025-01-17 10:55] LABS: BAND NEUTROPHILS % (MANUAL) 5 % (0-2); MAN.DIFF COMMENT-IMPRESSION MANUAL DIFFERENTIAL; MONOCYTES % (MANUAL) 3 % (2-9); TOTAL CELLS COUNTED 100
[2025-01-17 10:56] LABS: PLATELET MORPHOLOGY COMMENT ADEQUATE
--- NOTE | 2025-01-17 12:00 | NUR ---
HEMODIALYSIS: YADY FROM DIALYSIS CALLED AND WILL BE MAKING HIS WAY DOWN TO START HD. CONSENT JUST OBTAINED BY SON WHO SIGNED FOR PT.
[2025-01-17] MEDS: VANCOMYCIN 2GM/500 ML BAG 500 ML IV ONE (12:30)
[2025-01-17] MEDS ORDERED: VANCOMYCIN PROTOCOL PER PHARMACY IV SCH (12:30)
--- NOTE | 2025-01-17 12:48 | NUR ---
HEMODIALYSIS: YADY FROM HD IS NOW SET UP AT BEDSIDE AND IS ABOUT TO START THE DIAILYSIS. FAMILY HAS LEFT THE ROOM.
[2025-01-17 13:04] LABS: BASOPHILS % (MANUAL) 6 % (0-2); EOSINOPHILS % (MANUAL) 8 % (1-6); LYMPHOCYTES % (MANUAL) 12 % (22-44); MYELOCYTES % 1 % (0-0); SEGMENTED NEUTROPHILS % 65 % (40-70)
--- NOTE | 2025-01-17 13:04 | NUR ---
REFER TO HD DOCUMENTATION AND VITAL SIGNS
--- NOTE | 2025-01-17 13:10 | HP ---
[facility] HISTORY & PHYSICAL Date Patient Seen: Jan 17, 2025 Time of Visit: 13:04 Supervising Physician: Dr. Greg Ramos Primary Care Physician: [ ] Outpatient Specialists: [ ] Inpatient Consults: Dr. Milton Brewer (nephro) PROBLEM LIST: Acute diastolic congestive heart failure Acute hypoxic respiratory failure Pulmonary edema ESRD on hemodialysis MWF Atrial fibrillation Diabetes mellitus type 2 Hypercholesteremia Hypertension Hypothyroidism History of malignant myelofibrosis HPI: Patient was a 74-year-old female with a past medical history significant for ESRD and myelodysplastic syndrom seen by Dr. Ha who presented and was admitted for an episode of generalized body weakness, lethargy, acute toxic metabolic encephalopathy. Report was given in the ED by family however during my evaluation no family was at bedside. Patient's glucose level was on the 50s upon arrival and was corrected with oral glucose. Patient experiencing shortness of breath, started on 2 L nasal cannula and upgraded to non-rebreather mask. At this time patient has been seen by Nephrology and it is recommended for 2 hours of hemodialysis today, followed by her regularly scheduled hemodial ysis starting tomorrow. PAST MEDICAL HX: see above PAST SURGICAL HX: noncontributory SOCIAL HISTORY: No tobacco, ETOH, or illicit drug use Coded Allergies: No Known Drug Allergies (Unverified Allergy, Unknown, 03/13/15) janki (Verified Allergy, Unknown, 07/13/22) linezolid (Unverified Adverse Reaction, Intermediate, ALTERED MENTAL STATUS, 07/23/24) REVIEW OF SYSTEMS: 12 point ROS reviewed with patient. Pertinent positives mentioned above. Otherwise negative. PHYSICAL EXAM: GENERAL: alert, weak, awake oriented x 3 HEENT: EOMI, Sclera non icteric, moist mucosa NECK: Supple, no JVD, trachea midline LUNGS: Clear breath sounds bilaterally. No wheezes HEART: Regular rate and rhythm. Normal S1 and S2, without murmurs ABD: Abdomen soft, nontender. Bowel sounds present EXT: No clubbing cyanosis or edema NEURO: Alert and oriented to person, follows commands Vital Signs (last 8hr) Date Time Temp Pulse Resp B/P (MAP) Pulse Ox O2 Delivery O2 Flow Rate FiO2 01/17/25 09:02 78 17 107/56 97 Non-Rebreather+ 12 100 01/17/25 07:53 97.5 74 16 107/60 99 Room Air 2.0 LABS: Hematology Labs: Test 01/17/25 09:29 Range/Units White Blood Count 32.1 *H 4.8-10.8 K/uL Red Blood Count 2.65 L 4.00-5.50 MIL/uL Hemoglobin 7.8 L 12.0-16.0 g/dL Hematocrit 25.8 L 36-48 % Mean Corpuscular Volume 97.4 79-99 fL Mean Corpuscular Hemoglobin 29.4 27.0-33.0 pg Mean Corpuscular Hemoglobin Concent 30.2 L 32.0-36.0 g/dL Red Cell Distribution Width 16.8 H 11.0-15.5 % Platelet Count 144 130-400 K/uL Mean Platelet Volume 13.7 H 7.5-10.5 fL Immature Granulocyte % (Auto) 7.0 H 0-1 % Neutrophils (%) (Auto) 63.5 40.0-77.0 % Lymphocytes (%) (Auto) 6.1 L 21.0-51.0 % Monocytes (%) (Auto) 10.5 3.0-13.0 % Eosinophils (%) (Auto) 8.5 H 0.0-8.0 % Basophils (%) (Auto) 4.4 0.0-5.0 % Neutrophils # (Auto) 20.4 H 1.8-7.7 K/uL Lymphocytes # (Auto) 2.0 1.0-4.8 K/uL Monocytes # (Auto) 3.4 H 0.1-1.0 K/uL Eosinophils # (Auto) 2.73 H 0.00-0.70 K/uL Basophils # (Auto) 1.41 H 0.00-0.20 K/uL Absolute Immature Granulocyte (auto 2.24 H 0-1 K/uL Segmented Neutrophils % 65 40-70 % Band Neutrophils % 5 H 0-2 % Lymphocytes % (Manual) 12 L 22-44 % Monocytes % (Manual) 3 2-9 % Eosinophils % (Manual) 8 H 1-6 % Basophils % (Manual) 6 H 0-2 % Myelocytes % 1 H 0-0 % Nucleated Red Blood Cells 0.3 H 0.0-0.19 % Differential Comment MANUAL DIFFERENTIAL White Cell Morphology Comment Platelet Morphology Comment ADEQUATE Red Blood Cell Morphology See comments Chemistry Labs: Test 01/17/25 10:19 01/17/25 09:29 01/17/25 09:25 Range/Units Ammonia 20 11-32 umol/L B-Type Natriuretic Peptide 622 H 0-100 pg/mL Sodium Level 135 L 136-145 mmol/L Potassium Level 5.0 3.5-5.1 mmol/L Chloride Level 98 L 101-111 mmol/L Carbon Dioxide Level 30 21-32 mmol/L Blood Urea Nitrogen 47 H 7-18 mg/dL Creatinine 5.5 H 0.5-1.0 mg/dL Glomerular Filtration Rate Calc 8 >90 mL/min Random Glucose 57 L 70-105 mg/dL Lactic Acid Level 1.3 0.8-2.5 mmol/L Total Calcium 8.7 8.5-10.1 mg/dL Total Bilirubin 0.4 0.2-1.0 mg/dL Direct Bilirubin 0.2 0.0-0.3 mg/dL Aspartate Amino Transf (AST/SGOT) 43 H 10-37 U/L Alanine Aminotransferase (ALT/SGPT) 29 12-78 U/L Alkaline Phosphatase 217 H 50-136 U/L Total Creatine Kinase 20 L 21-232 U/L Troponin I High Sensitivity 8 4-50 ng/L Total Protein 8.2 6.0-8.3 g/dL Albumin 2.6 L 3.5-5.0 g/dL DIAGNOSTICS / RADIOLOGY RESULTS: [ ] PLAN NEURO: Minimize central acting medications as possible. Maintain fall precautions, adequate lighting during the day PULMONARY: Supplemental 02 as needed. Maintain aspiration precautions at all times CARDIOVASCULAR: Follow hemodynamics. Vital signs per facility protocol GI & NUTRITION: Continue with nutritional support. Continue stool softeners and laxatives as needed. KIDNEYS & ELECTROLYTES: Strict monitoring of intake, output and overall fluid balance. Avoid nephrotoxic medications to the extent possible. Medications to be dosed according to renal function. Monitor electrolytes and replace as needed ENDOCRINE: Maintain blood glucose between 100-180 at all times. Hypoglycemia protocol in place INFECTIOUS DISEASE: Trend temperature, WBC and procalcitonin level Follow cultures, deescalate antibiotics as soon as possible. Panculture if new onset fever ONCOLOGY/HEMATOLOGY/COAGULATION: Monitor for s/s of bleeding Monitor hemoglobin, coagulation studies as needed SKIN: Pressure ulcer prevention per facility protocol Specialty mattress ORTHO/REHAB: Continue PT/OT Prophylaxis: Continue GI and DVT prophylaxis Code Status: Full Resuscitation Disposition: TBD Other: Total patient care time exceeds 35 minutes excluding all procedures. NATALIYA DIAZ Jan 17, 2025 13:10
--- NOTE | 2025-01-17 13:18 | CONS ---
REFERRING PHYSICIAN: Dr. Herring. REASON FOR CONSULTATION: Renal failure, sepsis. HISTORY OF PRESENT ILLNESS: A 74-year-old female with a history of diabetes mellitus and hypertension. She has a history of myelofibrosis. The patient has a history of end-stage renal disease, on dialysis 3 times per week. The patient presented to the hospital with complaints of generalized fatigue and shortness of breath. In the Emergency Room, the patient was found to have significant leukocytosis of 32,000 with a left shift. The patient does have a PermCath in place for dialysis and she is being seen in consultation for all of the above. PAST MEDICAL HISTORY: Diabetes mellitus, hypertension, myelofibrosis, end-stage renal disease. PAST SURGICAL HISTORY: She has a PermCath. She has had I and D of wounds. SOCIAL HISTORY: She lives in the correction. There is no tobacco use. FAMILY HISTORY: There is no renal disease in the family. ALLERGIES: SHE HAS AN ALLERGY TO ZYVOX. MEDICATIONS: All noted. REVIEW OF SYSTEMS: GENERAL: She is feeling weak and tired. HEENT: No change in vision. No change in hearing, no nasal discharge, no sore throat. CARDIOVASCULAR: There is no current chest pain or palpitations. PULMONARY: She does complain of the shortness of breath. GASTROINTESTINAL: She had been tolerating a diet. MUSCULOSKELETAL: Complains of weakness. NEUROLOGIC: No history of seizures or focal deficits. PSYCHIATRIC: No history of hallucinations, psychosis. ENDOCRINE: Diabetes mellitus. No history of thyroid disease. HEME: History of myelofibrosis. OBJECTIVE: VITAL SIGNS: Blood pressure 107/56, pulse 70s. She is afebrile. GENERAL: She is a chronically ill female, elderly, lying in bed on medical floor. HEENT: Head is atraumatic. Pupils equal, roving to light. Oropharynx is without exudate. Nares clear. NECK: There is no JVP. There is no thyromegaly, no mass. CARDIOVASCULAR: Regular. There is no S3, S4 gallop. LUNGS: Coarse with equal thoracic movement. ABDOMEN: Soft, nondistended, nontender. EXTREMITIES: Reveal no clubbing, no cyanosis. NEUROLOGICAL: She is awake. She is alert. She is oriented. SKIN: Reveals no rash or nodules. BACK: There is no CVA tenderness, no back deformities. LABORATORY DATA: Hemoglobin 7.8, hematocrit is 25 with white cell count 32,000. She has a left shift. Sodium 135, potassium is 5, BUN 47, creatinine is 5.5. IMPRESSION: * Sepsis. * End-stage renal disease, on dialysis. * Hypotension with history of myelofibrosis. * Diabetes mellitus. PLAN: The patient is being admitted to the hospital. Blood cultures have been sent. The patient will be started on vancomycin per pharmacy protocol, as well as Zosyn while we await culture results. The patient will be resumed on the midodrine for her hypotension and we will follow closely. All labs will be repeated in the a.m. We will continue to follow closely. The patient will receive dialysis on the day of this consultation and we will continue on a Tuesday, Tuesday, Tuesday schedule. The patient can be started on Epogen with her dialysis. We will follow closely and make further recommendations accordingly. TID: [id number] RECEIPT: [id number]
[2025-01-17] MEDS ORDERED: ALPRAZolam 0.5 MG TABLET PO PRN (13:30)
[2025-01-17] MEDS ORDERED: DiphenhydrAMINE HCL 50 MG/ML VIAL IV PRN (13:30)
[2025-01-17] MEDS ORDERED: guaiFENesin-DM 200/20MG 10ML PO PRN (13:30)
[2025-01-17] MEDS ORDERED: ondanSETRON 4MG INJ IV PRN (13:30)
[2025-01-17] MEDS ORDERED: MAG/ALUM/SIMETH 30 ML UDCUP PO PRN (13:30)
[2025-01-17] MEDS ORDERED: acetaMINOPHEN 325 MG TAB PO PRN ×2 (13:30)
[2025-01-17] MEDS ORDERED: polyETHYLene GLYCol 3350 17 GM POWD.PACK PO PRN (13:30)
[2025-01-17] MEDS ORDERED: LACTULOSE 20 GM/30 ML UDCUP PO PRN (13:30)
[2025-01-17] MEDS ORDERED: BENZOCAINE/MENTH/CETYLPYRD CL 1 EACH LOZENGE MM PRN (13:30)
[2025-01-17] MEDS ORDERED: NITROGLYCERIN 0.4 MG SL TAB SL PRN (13:30)
[2025-01-17] MEDS: 0.9%NACL 1000ML 1,000 ML IV SCH (13:30)
[2025-01-17] MEDS ORDERED: ARTIFICAL TEARS SOL 15 ML OP PRN (13:30)
[2025-01-17] MEDS ORDERED: guaiFENesin SUGAR-FREE 100 MG/5 ML UDCUP PO PRN (13:30)
[2025-01-17] MEDS ORDERED: LOPERAMIDE HCL 2 MG CAP PO PRN (13:30)
[2025-01-17] MEDS ORDERED: doCUSate SODIUM 100 MG CAP PO PRN (13:30)
[2025-01-17] MEDS ORDERED: ZOLPidem TARTrate 5 MG TAB PO PRN (13:30)
[2025-01-17] MEDS ORDERED: DiphenhydrAMINE HCL 25 MG CAPSULE PO PRN (13:30)
[2025-01-17] MEDS ORDERED: LIDOCAINE HCL 2% VISCOUS 30 ML, MAG/ALUM/SIMETH 30ML 30 ML, DICYCLOMINE HCL 20 MG PO PRN (13:30)
[2025-01-17] MEDS: ALBUMIN (HUMAN) 25% 50 ML IV.SOLN. IV ONE (13:45)
[2025-01-17] MEDS: ALBUMIN HUMAN 25% 100 ML IV ONE (13:53)
--- NOTE | 2025-01-17 15:15 | NUR ---
HEMODIALYSIS: PER YADY FROM DIALYSIS, HE WAS ABLE TO PULL 500MLS. BP DROPPED A BIT BUT WAS GIVEN ALBUMIN PER THEIR PROTOCOL. PT TOLERATED OTHERWISE WELL.
[2025-01-17] MEDS ORDERED: MAG-55 PO (15:18)
[2025-01-17] MEDS ORDERED: SEVE0.8P PO (15:18)
[2025-01-17] MEDS ORDERED: FOLI0.8T22 PO (15:18)
[2025-01-17] MEDS ORDERED: LACT-441 PO (15:18)
[2025-01-17] MEDS ORDERED: LOPE2TAB26 PO (15:18)
[2025-01-17] MEDS ORDERED: LEVO125C4 PO (15:18)
[2025-01-17] MEDS ORDERED: FURO20TA6 PO (15:18)
[2025-01-17] MEDS ORDERED: HYDR25TA67 PO (15:18)
[2025-01-17] MEDS ORDERED: METO-408 PO (15:18)
[2025-01-17] MEDS ORDERED: MIDO10TA3 PO (15:18)
[2025-01-17] MEDS ORDERED: CITA-106 PO (15:18)
--- NOTE | 2025-01-17 15:19 | NUR ---
MEDICATION RECONCILIATION: COMPLETE
--- NOTE | 2025-01-17 15:51 | NUR ---
PT A BIT MORE ALERT THAN WHEN SHE FIRST ARRIVED
[2025-01-17 15:55] LABS: INR 1.04 (0.85-1.15)
[2025-01-17 15:57] LABS: PARTIAL THROMBOPLASTIN TIME 32.2 SEC (26.3-35.5)
--- NOTE | 2025-01-17 16:45 | NUR ---
PT SOILED W/STOOL. PT CLEANED AND LINEN CHANGED W/ASSIST MIRIAM MONTALVO INDUSTRIAL SPRAYPAINTER STUDENT. PT WAS ABLE TO ASSIST IN TURNING HERSELF.
--- NOTE | 2025-01-17 17:07 | NUR ---
EMILY SPARROW WAS CALLED D/T A GLUCOSE OF 44MG/DL. D50 JUST ADMINISTERED.
[2025-01-17] MEDS: DEXTROSE 50%-WATER 50 ML DISP.SYRIN IV ONE (17:09)
[2025-01-17] MEDS ORDERED: GLUCAGON 1MG KIT 1 MG ML IM PRN (17:30)
[2025-01-17] MEDS ORDERED: DEXTROSE 50%-WATER 50 ML DISP.SYRIN IV PRN (17:30)
--- NOTE | 2025-01-17 17:31 | NUR ---
HYPOGLYCEMIA: REPEAT GLUCOSE WAS 89MG/DL POST D50 50ML. ALSO, SELVIN BUSINESS PLANNING ANALYST STUDENT ASSISTING PT W/4 [place]ES OF [place]
--- NOTE | 2025-01-17 17:46 | NUR ---
FAMILY JUST ARRIVED AND WILL ASSIST PT W/EVENING MEAL TRAY
[2025-01-17] MEDS: miDODRine HCL 5 MG TABLET PO SCH (18:02)
--- NOTE | 2025-01-17 18:35 | NUR ---
MIDLINE ACCESS: CONSENT OBTAINED W/PT PERMISSION AND DAUGHTER SIGNED. RGV PIC PUBLIC HEALTH WORKER ARRIVED AND IS PREPPING TO START THE INSERTION. PT AWARE AND OK W/IT
--- NOTE | 2025-01-17 19:21 | NUR ---
REPORT ENDORSED KENNY CONKLIN
[2025-01-17] MEDS ORDERED: FAMOTIDINE 20MG VIAL IV SCH (21:00)
[2025-01-17 21:25] LABS: REACTIVE LYMPHOCYTES 1 % (0-0)
[2025-01-17] MEDS: FAMOTIDINE 20MG TAB PO SCH (22:43)
[2025-01-17] MEDS: 0.9% NACL 250ML IVPB ONE (22:43)
[2025-01-18] VITALS (19 sets, daily range): BP systolic 91–129; BP diastolic 41–72; PULSE 87–105; RESP 20–22; TEMP 98–98.7; O2SAT 100
[2025-01-18] MEDS: VANCOMYCIN 750MG VIAL IVPB ONE (00:06)
[2025-01-18] MEDS: VANCOMYCIN 750MG VIAL IVPB SCH (03:06)
[2025-01-18 04:11] LABS: HEPATITIS B CORE AB TOTAL Non-Reactive (Nonreactive); HEPATITIS B SURFACE ANTIGEN Non-Reactive (Nonreactive)
--- NOTE | 2025-01-18 07:30 | NUR ---
AVELINA RECIEVED FROM [facility], WILL ASSUME PRIMARY CARE AT THIS TIME, PT CLEANED OF INCONTINENCE, BED CHANGED, PT TOLORATED WELL, WILL CONTINUE TO MONITOR
[2025-01-18 07:37] LABS: PHOSPHORUS 4.3 mg/dL (2.5-4.9); POTASSIUM 4.6 mmol/L (3.5-5.1)
--- NOTE | 2025-01-18 10:03 | PN ---
SUBJECTIVE: The patient was seen and evaluated on hemodialysis, prescription noted. OBJECTIVE: VITAL SIGNS: Blood pressure 110/50, pulse 90s. CARDIOVASCULAR: Regular. LUNGS: Coarse. IMPRESSION: * End-stage renal disease. * Sepsis. PLAN: The patient remains on the antibiotics and we will continue to follow the patient closely. TID: [id number] RECEIPT:
--- NOTE | 2025-01-18 10:04 | PN ---
FOLLOWUP PROGRESS NOTE SUBJECTIVE: A 74-year-old female with a history of end-stage renal disease, on dialysis 3 times a week. The patient with a history of myelofibrosis. She presented to the hospital with underlying sepsis. The patient was started on broad-spectrum IV antibiotics. The patient's cultures are all pending. The patient is being seen for all the above. She was started on broad-spectrum IV antibiotics. REVIEW OF SYSTEMS: GENERAL: She is feeling much improved. HEENT: No change in vision. No change in hearing. CARDIOVASCULAR: No current chest pain or palpitations. PULMONARY: There is no shortness of breath. GASTROINTESTINAL: She has been started on a diet. MUSCULOSKELETAL: She complains of weakness. PHYSICAL EXAMINATION:. VITAL SIGNS: Blood pressure 110/50, pulse 90s. She is afebrile. GENERAL: She is a chronically ill female, elderly, lying in bed on the medical floor. HEENT: Head is atraumatic. Pupils equal, roving to light. Oropharynx is without exudate. Nares clear. NECK: There is no JVP. There is no thyromegaly, no mass. CARDIOVASCULAR: Regular. There is no S3, S4 gallop. LUNGS: Coarse with equal thoracic movement. ABDOMEN: Soft, nondistended, nontender. EXTREMITIES: Reveal no clubbing, no cyanosis. NEUROLOGIC: She is awake. She is alert. LABORATORY DATA: Sodium 135, potassium 4.6, BUN 44, creatinine 5. IMPRESSION: * Sepsis. * Hypotension. * Diabetes mellitus. * End-stage renal disease. TID: [id number] RECEIPT: [id number]
[2025-01-18] MEDS: ALBUMIN (HUMAN) 25% 50 ML IV.SOLN. IV SCH (10:32)
[2025-01-18] MEDS: 0.9%NACL 1000ML 1,000 ML IV SCH (10:33)
[2025-01-18 10:56] LABS: BASOPHILS # (AUTO) 1.06 K/uL (0.00-0.20); EOSINOPHILS # (AUTO) 1.94 K/uL (0.00-0.70); EOSINOPHILS % (AUTO) 7.4 % (0.0-8.0); HEMATOCRIT 24.3 % (36-48); IMMATURE GRANULOCYTE ABSOLUTE 2.21 K/uL (0-1); LYMPHOCYTES # (AUTO) 1.7 K/uL (1.0-4.8); LYMPHOCYTES % (AUTO) 6.4 % (21.0-51.0); MEAN CORPUSCULAR HEMOGLOBIN 29.4 pg (27.0-33.0); MEAN CORPUSCULAR HGB CONC 30.5 g/dL (32.0-36.0); MEAN CORPUSCULAR VOLUME 96.4 fL (79-99); MONOCYTES # (AUTO) 1.7 K/uL (0.1-1.0); MONOCYTES % (AUTO) 6.3 % (3.0-13.0); NEUTROPHILS # (AUTO) 17.8 K/uL (1.8-7.7); NEUTROPHILS % (AUTO) 67.5 % (40.0-77.0); NUCLEATED RED BLOOD CELLS 0.5 % (0.0-0.19); PLATELET COUNT (AUTO) 143 K/uL (130-400); RED BLOOD CELL COUNT(AUTO) 2.52 MIL/uL (4.00-5.50); RED CELL DISTRIBUTION WIDTH 16.6 % (11.0-15.5); WHITE BLOOD COUNT (AUTO) 26.3 K/uL (4.8-10.8)
[2025-01-18 11:01] LABS: CREATININE 1.2 mg/dL (0.5-1.0)
--- NOTE | 2025-01-18 11:02 | NUR ---
DCP: HOME Pt currently at [facility] since 01/10 for rehab. Per pt and son (via phone), pt to return to [facility] to complete rehab days. Verbal consent given by son for referral back to [facility]. Prior to SNF, pt was living at home with her brother Shantal. Pt has 24hr provider services Mon thru Sat, thru [facility]. Son sets up transports to dialysis with [facility], treatments MWF at 9am at [facility]. PCP is Donaldo Broussard and uses [facility] for rx. Addendum: 01/18/25 at 1107 by ANJALI FENTON Amended: Links added.
--- NOTE | 2025-01-18 11:08 | NUR ---
K-2.2 PCP MADE AWARE
[2025-01-18 11:09] LABS: POTASSIUM 2.2 mmol/L (3.5-5.1)
[2025-01-18 11:20] LABS: HEPATITIS B SURFACE ANTIBODY Negative (Reactive)
--- NOTE | 2025-01-18 11:23 | NUR ---
DIALYSIS NURSE MADE AWARE K LEVEL WILL ADJUST DURING DIALYSIS
--- NOTE | 2025-01-18 11:42 | NUR ---
PT CLEANED OF INCONTINENCE LINEN CHANGED, PT TOLORATED WELL
--- NOTE | 2025-01-18 11:45 | NUR ---
DIALYSIS COMPLETED AT BEDSIDE, 1.6 LTS REMOVED
[2025-01-18 12:19] LABS: BAND NEUTROPHILS % (MANUAL) 37 % (0-2); BASOPHILS % (MANUAL) 6 % (0-2); BLASTS, MANUAL % 2 (0-0); EOSINOPHILS % (MANUAL) 5 % (1-6); LYMPHOCYTES % (MANUAL) 4 % (22-44); MAN.DIFF COMMENT-IMPRESSION MANUAL DIFFERENTIAL; MONOCYTES % (MANUAL) 5 % (2-9); MYELOCYTES % 3 % (0-0); PLATELET MORPHOLOGY COMMENT ADEQUATE; SEGMENTED NEUTROPHILS % 38 % (40-70); TOTAL CELLS COUNTED 100
--- NOTE | 2025-01-18 12:55 | PN ---
[facility] PROGRESS NOTE Date Patient Seen: Jan 18, 2025 Time of Visit: 12:55 Supervising Physician: [ ] Supervising Physician: Dr. Greg Ramos Primary Care Physician: [ ] Outpatient Specialists: [ ] Inpatient Consults: Dr. Milton Brewer (nephro) PROBLEM LIST: Acute diastolic congestive heart failure Acute hypoxic respiratory failure Pulmonary edema ESRD on hemodialysis MWF Atrial fibrillation Diabetes mellitus type 2 Hypercholesteremia Hypertension Hypothyroidism History of malignant myelofibrosis INTERVAL HISTORY: [ ] REVIEW OF SYSTEMS: 12 point ROS reviewed with patient. Pertinent positives mentioned above. Otherwise negative. PHYSICAL EXAM: GENERAL: alert, weak, awake oriented x 3 HEENT: EOMI, Sclera non icteric, moist mucosa NECK: Supple, no JVD, trachea midline LUNGS: Clear breath sounds bilaterally. No wheezes HEART: Regular rate and rhythm. Normal S1 and S2, without murmurs ABD: Abdomen soft, nontender. Bowel sounds present EXT: No clubbing cyanosis or edema NEURO: Alert and oriented to person, follows commands Vital Signs (last 8hr) Date Time Temp Pulse Resp B/P (MAP) Pulse Ox O2 Delivery O2 Flow Rate FiO2 01/18/25 12:15 97 22 116/50 100 Nasal Cannula 4.0 01/18/25 12:00 96 22 109/56 100 Nasal Cannula 4.0 01/18/25 11:45 100 22 121/65 99 Nasal Cannula 4.0 01/18/25 11:30 95 22 113/53 99 Nasal Cannula 4.0 01/18/25 11:15 98 22 111/52 98 Nasal Cannula 4.0 01/18/25 11:00 102 22 101/47 97 Nasal Cannula 4.0 01/18/25 10:55 100 22 93/42 98 Nasal Cannula 4.0 01/18/25 10:50 101 22 91/41 100 Nasal Cannula 4.0 01/18/25 10:45 105 22 101/41 100 Nasal Cannula 4.0 01/18/25 10:30 105 22 106/58 100 Nasal Cannula 4.0 01/18/25 10:15 100 22 108/56 100 Nasal Cannula 4.0 01/18/25 10:00 97 22 118/65 100 Nasal Cannula 4.0 01/18/25 09:45 103 22 123/72 100 Nasal Cannula 4.0 01/18/25 09:30 103 22 121/56 100 Nasal Cannula 4.0 01/18/25 09:25 98.1 100 22 129/66 99 Nasal Cannula 4.0 01/18/25 09:00 98.1 100 20 119/53 100 Nasal Cannula 4.0 01/18/25 08:00 99.0 94 20 119/49 99 Room Air* 0 21 LABS: Hematology Labs: Test 01/18/25 10:45 01/17/25 09:29 Range/Units White Blood Count 26.3 H 4.8-10.8 K/uL Red Blood Count 2.52 L 4.00-5.50 MIL/uL Hemoglobin 7.4 L 12.0-16.0 g/dL Hematocrit 24.3 L 36-48 % Mean Corpuscular Volume 96.4 79-99 fL Mean Corpuscular Hemoglobin 29.4 27.0-33.0 pg Mean Corpuscular Hemoglobin Concent 30.5 L 32.0-36.0 g/dL Red Cell Distribution Width 16.6 H 11.0-15.5 % Platelet Count 143 130-400 K/uL Mean Platelet Volume 14.0 H 7.5-10.5 fL Immature Granulocyte % (Auto) 8.4 H 0-1 % Neutrophils (%) (Auto) 67.5 40.0-77.0 % Lymphocytes (%) (Auto) 6.4 L 21.0-51.0 % Monocytes (%) (Auto) 6.3 3.0-13.0 % Eosinophils (%) (Auto) 7.4 0.0-8.0 % Basophils (%) (Auto) 4.0 0.0-5.0 % Neutrophils # (Auto) 17.8 H 1.8-7.7 K/uL Lymphocytes # (Auto) 1.7 1.0-4.8 K/uL Monocytes # (Auto) 1.7 H 0.1-1.0 K/uL Eosinophils # (Auto) 1.94 H 0.00-0.70 K/uL Basophils # (Auto) 1.06 H 0.00-0.20 K/uL Absolute Immature Granulocyte (auto 2.21 H 0-1 K/uL Segmented Neutrophils % 38 L 40-70 % Band Neutrophils % 37 H 0-2 % Lymphocytes % (Manual) 4 L 22-44 % Monocytes % (Manual) 5 2-9 % Eosinophils % (Manual) 5 1-6 % Basophils % (Manual) 6 H 0-2 % Myelocytes % 3 H 0-0 % Blast Cells % 2 H 0-0 Nucleated Red Blood Cells 0.5 H 0.0-0.19 % Differential Comment MANUAL DIFFERENTIAL White Cell Morphology Comment Platelet Morphology Comment ADEQUATE Red Blood Cell Morphology See comments Metamyelocytes % 0-0 % Reactive Lymphocytes 1 H 0-0 % Chemistry Labs: Test 01/18/25 12:42 01/18/25 10:45 01/18/25 06:36 01/17/25 16:55 Range/Units Whole Blood Glucose 90 70-110 MG/DL Sodium Level 131 L 136-145 mmol/L Potassium Level 2.2 *L 3.5-5.1 mmol/L Chloride Level 95 L 101-111 mmol/L Carbon Dioxide Level 33 H 21-32 mmol/L Blood Urea Nitrogen 9 # 7-18 mg/dL Creatinine 1.2 H 0.5-1.0 mg/dL Glomerular Filtration Rate Calc 47 >90 mL/min Random Glucose 94 70-105 mg/dL Total Calcium 7.8 L 8.5-10.1 mg/dL Phosphorus Level 4.3 2.5-4.9 mg/dL Bedside Glucose Comment Notified Nurse Test 01/17/25 10:19 01/17/25 09:29 01/17/25 09:25 Range/Units Ammonia 20 11-32 umol/L B-Type Natriuretic Peptide 622 H 0-100 pg/mL Lactic Acid Level 1.3 0.8-2.5 mmol/L Total Bilirubin 0.4 0.2-1.0 mg/dL Direct Bilirubin 0.2 0.0-0.3 mg/dL Aspartate Amino Transf (AST/SGOT) 43 H 10-37 U/L Alanine Aminotransferase (ALT/SGPT) 29 12-78 U/L Alkaline Phosphatase 217 H 50-136 U/L Total Creatine Kinase 20 L 21-232 U/L Troponin I High Sensitivity 8 4-50 ng/L Total Protein 8.2 6.0-8.3 g/dL Albumin 2.6 L 3.5-5.0 g/dL Coagulation Labs: Test 01/17/25 10:19 Range/Units Prothrombin Time 11.0 9.6-11.6 SEC Prothromb Time International Ratio 1.04 0.85-1.15 Activated Partial Thromboplast Time 32.2 26.3-35.5 SEC DIAGNOSTICS / RADIOLOGY RESULTS: [ ] PLAN NEURO: Minimize central acting medications as possible. Maintain fall precautions, adequate lighting during the day PULMONARY: Supplemental 02 as needed. Maintain aspiration precautions at all times CARDIOVASCULAR: Follow hemodynamics. Vital signs per facility protocol GI & NUTRITION: Continue with nutritional support. Continue stool softeners and laxatives as needed. KIDNEYS & ELECTROLYTES: Strict monitoring of intake, output and overall fluid balance. Avoid nephrotoxic medications to the extent possible. Medications to be dosed according to renal function. Monitor electrolytes and replace as needed ENDOCRINE: Maintain blood glucose between 100-180 at all times. Hypoglycemia protocol in place INFECTIOUS DISEASE: Trend temperature, WBC and procalcitonin level Follow cultures, deescalate antibiotics as soon as possible. Panculture if new onset fever ONCOLOGY/HEMATOLOGY/COAGULATION: Monitor for s/s of bleeding Monitor hemoglobin, coagulation studies as needed SKIN: Pressure ulcer prevention per facility protocol Specialty mattress ORTHO/REHAB: Continue PT/OT Prophylaxis: Continue GI and DVT prophylaxis Code Status: Full Resuscitation Disposition: TBD Other: Total patient care time exceeds 35 minutes excluding all procedures. NATALIYA DIAZ Jan 18, 2025 12:55
--- NOTE | 2025-01-18 13:11 | NUR ---
PT TOLORATED LUNCH, GOWN CHANGED , LINEN CHANGED, REARRANGED IN BED HOB ELEVATED
--- NOTE | 2025-01-18 14:30 | NUR ---
PT CLEANED OF INCONTINENCE, PT TOLORATED WELL, BARRIER CREAM APPLIED, WILL CONTINUE TO MONITOR
[2025-01-18] MEDS: EPOETIN ALFA-EPBX (NON-ESRD) 10,000 UNIT/ML VIAL SQ SCH (16:22)
--- NOTE | 2025-01-18 16:29 | NUR ---
Attempted PT eval twice, last time at 1430, patient was still on dialysis. PT to follow .
--- NOTE | 2025-01-18 16:38 | DS ---
[facility] DISCHARGE SUMMARY Date Patient Seen: Jan 18, 2025 Time of Visit: 16:35 Supervising Physician: [ ] Supervising Physician: Dr. Greg Ramos Primary Care Physician: [ ] Outpatient Specialists: [ ] Inpatient Consults: Dr. Milton Brewer (nephro) HOSPITAL COURSE: HPI (per admitting provider) Patient was a 74-year-old female with a past medical history significant for ESRD and myelodysplastic syndrom seen by Dr. Ha who presented and was admitted for an episode of generalized body weakness, lethargy, acute toxic metabolic encephalopathy. Report was given in the ED by family however during my evaluation no family was at bedside. Patient's glucose level was on the 50s upon arrival and was corrected with oral glucose. Patient experiencing shortness of breath, started on 2 L nasal cannula and upgraded to non-rebreather mask. At this time patient has been seen by Nephrology and it is recommended for 2 hours of hemodialysis today, followed by her regularly scheduled hemodialysis starting tomorrow. The patient was treated for the following problems: Patient received an extra round of dialysis yesterday, as well as her regularly scheduled hemodialysis today. Patient was advised to continue with her regularly scheduled hemodialysis and follow recommended renal diet. Patient's white count on admission is secondary to her MDS/CLL diagnosis, patient was currently at baseline. Blood cultures have returned negative at this time. Patient was being discharged back to the SNF facility where she was a resident to continue with dialysis and weaned from supplemental O2. Recommendations for discussion of goals of care with family as well as future hospice/palliative care evaluation. ACTIVE PROBLEM LIST FOR THE HOSPITALIZATION: Acute diastolic congestive heart failure Acute hypoxic respiratory failure Pulmonary edema CHRONIC PROBLEMS: continue previous management per PCP unless otherwise indicated ESRD on hemodialysis MWF Atrial fibrillation Diabetes mellitus type 2 Hypercholesteremia Hypertension Hypothyroidism History of malignant myelofibrosis KETTLE COOK FINDINGS/RECOMMENDATIONS: [ ] PROCEDURES: as mentioned above DISCHARGE MEDICATIONS: Pt hemodynamically stable and afebrile at time of discharge. PCP notified of patients admission, hospital course and discharge. PHYSICAL EXAM: GENERAL: alert, weak, awake oriented x 3 HEENT: EOMI, Sclera non icteric, moist mucosa NECK: Supple, no JVD, trachea midline LUNGS: Clear breath sounds bilaterally. No wheezes HEART: Regular rate and rhythm. Normal S1 and S2, without murmurs ABD: Abdomen soft, nontender. Bowel sounds present EXT: No clubbing cyanosis or edema NEURO: Alert and oriented to person, follows commands FOLLOW-UP: Follow-up with PCP in 2-3 days RECOMMENDATIONS: See Discharge Instructions This case was seen and discussed with my supervising physician. More than 30 minutes spent on discharge process, including evaluation of the patient, discussion with nursing staff, medication reconciliation and follow-up appointments NATALIYA DIAZ Jan 18, 2025 16:38
[2025-01-18] MEDS: HEParin 5,000 UNIT VIAL IRRIG SCH (16:45)
--- NOTE | 2025-01-18 17:00 | NUR ---
NOTIFY FAMILY MEMBERS ABOUT DISCHAGE TO [facility]. DISCUSSED PLAN OF CARE, FOLLOW UP APPOITMENTS AND HOME MEDICATION. THEY VERBALIZED UNDERSTANDING.
--- NOTE | 2025-01-18 17:10 | NUR ---
CALLED MR. NATALIYA SPARROW FOR BENCHMARK FOR CLARIFICATION OF MEDICATION RECONSILIATION. HE GAVE ME TELEPHONE ORDER FOR CONTINUATION OF HOME MEDICATION.
--- NOTE | 2025-01-18 17:21 | NUR ---
CALLED ALECIA OF [facility] TO GIVE REPORT. SPOKE TO MRS. JACKELYN HERNANDEZ AND GAVE HER REPORT. NOTIFY HER THAT PATIENT WILL NEED [facility] TRANSPORTATION. SHE VERBALIZED UNDERSTANDING.
--- NOTE | 2025-01-18 19:11 | NUR ---
TOOK OVER PATIENT AT THIS TIME, PER DAY SHIFT, [facility] HAS BEEN NOTIFIED TO FRICTION SAW OPERATOR PATIENT VIA FACILITY VAN
--- NOTE | 2025-01-18 19:25 | NUR ---
[facility] ARRIVED FOR PATIENT AT THIS TIME
[2025-01-20] MEDS ORDERED: TRAZ-185 PO (02:08)
[2025-01-20] MEDS ORDERED: HYDR-3421 PO (02:08)
[2025-01-20] MEDS ORDERED: CITA-106 PO (02:08)
[2025-01-20] MEDS ORDERED: INSU10VI3 SQ (02:08)
[2025-01-20] MEDS ORDERED: BIOT5000 PO (02:08)
[2025-01-20] MEDS ORDERED: LACT-441 PO (02:08)
[2025-01-20] MEDS ORDERED: LOPE2TAB26 PO (02:08)
[2025-01-20] MEDS ORDERED: TRAMADOL HCL PO (02:08)
[2025-01-20] MEDS ORDERED: ZINC57OI3 TP (02:08)
[2025-01-20] MEDS ORDERED: SEVELAMER HYDROCHLORIDE PO (02:08)
[2025-01-20] MEDS ORDERED: LACT1TAB4 PO (02:08)
[2025-01-20] MEDS ORDERED: HYDR25TA67 PO (02:08)
[2025-01-20] MEDS ORDERED: MIDO10TA3 PO (02:08)
[2025-01-20] MEDS ORDERED: METO-391 PO (02:08)
[2025-01-20] MEDS ORDERED: FOLI0.8T22 PO (02:08)
[2025-01-20] MEDS ORDERED: BUDE0.5A8 NEB (02:08)
[2025-01-20] MEDS ORDERED: LEVO112C4 PO (02:08)
[2025-01-20] MEDS ORDERED: IPRA3AMP24 NEB (02:08)
== END 2025-01-18 19:30 ==
LOC: EDH 07:51 → UNDOADMOB 07:52 → EDHIP 07:52
PROVIDERS: ADMIT Internal Medicine Pulmonary Disease; ATTEND Internal Medicine Pulmonary Disease
DX: I13.2 Hypertensive heart and chronic kidney disease with heart failure and with stage 5 chronic kidney disease, or end stage renal disease (principal); E11.22 Type 2 diabetes mellitus with diabetic chronic kidney disease; I50.31 Acute diastolic (congestive) heart failure; N18.6 End stage renal disease; A41.9 Sepsis, unspecified organism; J96.01 Acute respiratory failure with hypoxia; J81.1 Chronic pulmonary edema; I48.91 Unspecified atrial fibrillation; G92.8 Other toxic encephalopathy; E78.00 Pure hypercholesterolemia, unspecified; E03.9 Hypothyroidism, unspecified; D57.819 Other sickle-cell disorders with crisis, unspecified; Z98.890 Other specified postprocedural states; Z99.2 Dependence on renal dialysis; Z79.899 Other long term (current) drug therapy; Z91.018 Allergy to other foods; Z88.8 Allergy status to other drugs, medicaments and biological substances
CPT/HCPCS: 96365; 96366 ×3; 82550; 80076; 84484; 80048 ×3; 82803; 83880; 82140; 85025 ×2; 85610; 85730; 86850; 86900; 86922; 86901; 87040 ×2; 82948 ×5; 83605; 86706; 87340; 86704; 36415 ×2; 71045; 99291; 93005; 36600; 90935 ×2; 96372; 96368; 84100; G0378 ×26; J7070; J2543; P9046; J3370 ×2; P9047; J1644; Q5106; 96361; G0257